=== PATIENT | male | born 1950 | race Caucasian/White ===

== ENCOUNTER → 2023-12-08 09:59 | Outpatient (REF) | payer MEDICARE, SELFPAY | LOC: RAD 09:59 | PROVIDERS: ATTENDING PHYSICIAN Family Medicine | DX: M46.1 Sacroiliitis, not elsewhere classified (principal) | CPT/HCPCS: 72110 ==

== ENCOUNTER → 2023-12-16 10:13 | Outpatient (REF) | payer MEDICARE, SELFPAY | LOC: RAD 10:13 | PROVIDERS: ATTENDING PHYSICIAN Family Medicine | DX: R68.89 Other general symptoms and signs (principal) | CPT/HCPCS: 93922; 93925 ==

== ENCOUNTER 2024-08-31 06:10 | Day surgery (SDC) | payer OTHER, SELFPAY ==
[2024-08-31 07:31] VITALS: BMI 44.9
[2024-08-31 07:32] VITALS: BMI 44.9
[2024-08-31 07:39] LABS: Glucose - Point of Care 193 mg/dl (70-99)
[2024-08-31 07:48] VITALS: BP 150/73
[2024-08-31 09:47] VITALS: BP 107/45
[2024-08-31 10:01] VITALS: BP 142/75
[2024-08-31 10:12] VITALS: BP 145/78
== END 2024-08-31 10:24 | disposition home or self-care (01) ==
LOC: SDS 06:10
PROVIDERS: ATTENDING PHYSICIAN Specialist; FAMILY PHYSICIAN Family Medicine
DX: Z12.11 Encounter for screening for malignant neoplasm of colon (principal); D12.3 Benign neoplasm of transverse colon; D12.4 Benign neoplasm of descending colon; D12.5 Benign neoplasm of sigmoid colon; Z86.0101 Personal history of adenomatous and serrated colon polyps
CPT/HCPCS: 45385; 88305; 82962

== ENCOUNTER 2024-10-18 14:05 | Inpatient (IN) | payer OTHER, SELFPAY ==
[2024-10-18] VITALS (14 sets, daily range): BP systolic 122–188; BP diastolic 60–87; BMI 43.5; BMI 42.4
[2024-10-18 06:55] LABS: Glucose - Point of Care 224 mg/dl (70-99)
--- NOTE | 2024-10-18 07:49 | ED.GENMED ---
History of Present Illness
General
Chief Complaint: Chest Pain
Source: patient
Exam Limitations: none
Time Seen by Provider: 10/18/24 06:59
Nursing documentation reviewed up to this point in time: agreed with
History of Present Illness
History of Present Illness:
74-year-old male past medical history of diabetes, CKD, hypertension hyperlipidemia presenting to the emergency department today with concerns of severe discomfort coming from his upper abdomen into his chest and also rating to his back had 2
episodes of vomiting and also seem to be very sweaty at home. Symptoms ongoing for roughly 10 hours prior to arrival to the ER. Denies similar symptoms in the past. Has had reflux in the past but this feels very different. Describes it as a
sharp aching pressure and sometimes more severe when it radiates to the back. Denies any changes in bowel movements.
Past History
Past History
ED Past Medical History: HTN, Hypercholesterolemia and IDDM
ED Past Surgical History: Orthopedic and Other (ENT)
Social History
Tobacco: Former smoker
Alcohol: Occasional
Drug: None
Personal:
Living: with family
Employment: Retired
Family History
Family History: Other (Noncontributory)
Review of Systems
Review of Systems
Allergies reviewed?: Yes
All Other Systems: ROS reviewed and negative except as documented in HPI and ROS
Phy Exam
Physical Exam
Physical Exam:
GENERAL: Alert , in no apparent distress
EYE: pupils equal and reactive
NECK: Supple, no significant adenopathy.
ENT: o/p clr, mmm.
CARDIAC: Regular rate and rhythm .
LUNGS: Clear breath sounds bilaterally, no acute respiratory distress, no wheezes/rales/rhonchi
ABDOMEN: Soft, without focal tenderness, no r/g, no cvat
NEUROLOGICAL: Alert and oriented, no focal neuro deficits
SKIN: Warm and dry, skin intact.
MUSCULOSKELETAL: No edema, well perfused.
PSYCH: Normal and appropriate interaction.
Scores
Heart Score for Chest Pain Patients
STEMI patient?: No
History: Slightly or Non-Suspicious
ECG: Normal
Age: >/= 65 years
Risk Factors: >/= 3 Risk Factors or History of CAD
Troponin: </= Normal Limit
Heart Score for Chest Pain Patients: 4
Heart Score Risk: 20.3% MACE over next 6 weeks
Course
Orders/Labs/Results
Orders:
Orders
10/18/24 06:46
EKG [Electrocardiogram (*1)] Urgent
Reason for Study: Chest Pain
10/18/24 06:47
EKG- Treatment ONCE
10/18/24 07:13
CT Chest/abd/pelvis Angio W/wo Urgent
Comment:
Reason For Exam: chest abd and back pain severe for 10 hours.
10/18/24 07:41
CMP [Comprehensive Metabolic Panel] Urgent
Complete Blood Count/With Diff Urgent
Lipase Urgent
Troponin I Urgent
10/18/24 09:45
US Abdomen Complete/Upper Urgent
Comment:
Reason For Exam: abnormal CT, LFT/bili up
10/18/24 12:41
Piperacillin/Tazo 4.5 Gram [Zosyn] 4.5 gram in 100 ml IV NOW
Abnormal Lab Results
10/18/24 10/18/24
06:53 07:41
RBC 4.45 L 10^6/uL
(4.70-6.10)
RDW 15.2 H %
(11.5-14.5)
MPV 10.8 H fL
(7.4-10.4)
Absolute Lymphs (auto) 0.8 L 10^3/uL
(1.2-3.4)
Absolute Monos (auto) 0.8 H 10^3/uL
(0.1-0.6)
Neutrophils % 77.7 H %
(42.2-75.2)
Lymphocytes % 9.8 L %
(20.5-51.1)
Monocytes % 9.7 H %
(1.7-9.3)
Chloride 109 H mmol/L
(98-107)
BUN 43 H mg/dl
(9-20)
Creatinine 1.8 H mg/dL
(0.7-1.3)
Glucose 230 H mg/dl
(70-99)
Total Bilirubin 1.4 H mg/dl
(0.2-1.3)
AST 854 H* U/L
(17-59)
ALT 497 H U/L
(0-50)
Alkaline Phosphatase 184 H U/L
(38-126)
Lipase 408 H U/L
(23-300)
POC Glucose 224 H mg/dl
(70-99)
10/18/24 07:41
10/18/24 07:41
Vital Signs
Initial and Last Documented VS:
Initial Vital Signs
Temp Pulse Resp BP Pulse Ox
97.7 F 85 24 156/79 98
10/18/24 06:47 10/18/24 06:47 10/18/24 06:47 10/18/24 06:47 10/18/24 06:47
Last Documented Vital Signs
Temp Pulse Resp BP Pulse Ox
97.7 F 97 18 188/65 100
10/18/24 06:47 10/18/24 10:00 10/18/24 10:15 10/18/24 10:00 10/18/24 10:00
MDM/Problems Addressed
MDM/Problems Addressed:
74-year-old male presenting to the emergency department today with concerns of discomfort initially that started in the abdomen was associated with vomiting now rating to the chest and back. On arrival here blood pressure slightly elevated
otherwise no emergent vital signs. Initial glucose level of 224. Concerning his description of symptoms from his abdomen to his chest to his back there was concern for aortic pathology. CT dissection study was ordered. No evidence of however was
concern of distention of the gallbladder. Labs showing significantly elevated LFTs elevated bili. Patient with normal labs in the past in this regard. Concerning this ultrasound was performed. This did not show emergent findings otherwise. He
does have ongoing discomfort mainly to the right side of the abdomen at this point plan to admit for further assessment and GI consultation.
*Critical Care Note
Total Time (30-74mins, 75-104mins- exclusive of procedures): Not Applicable
ED Attending Note
-
Portions of this chart may have been created with voice recognition software.� Occasional wrong word or��sound alike� substitutions may have occurred due to the inherent limitations of voice recognition software.
Discharge Plan
Departure
Patient Disposition: Admit
Date of Disposition: 10/18/24
Time of Disposition: 13:15
Admit to: Med/Surg
Admit to doctor: Sheu
Presentation/result/management discussed w/ accepting MD/DO: Hospitalist
Patient with high blood pressure during this ER visit?: No
Condition: Good
Covid-19: Not Applicable
Discharge Problem:
Abdominal pain, Transaminitis
Prescriptions:
No Action
simvastatin 20 MG tablet
20 mg PO DAILY
Patient Comments:
pt not sure dosage
insulin glargine [Lantus Solostar U-100 Insulin] 100 UNITS/ML insulin pen
45 units SC HS
furosemide 40 MG tablet
80 mg PO DAILY
lisinopril 20 MG tablet
20 mg PO DAILY
omeprazole [Prilosec] 10 MG capsule,delayed release(DR/EC)
10 mg PO DAILY
acetaminophen [Tylenol Extra Strength] 500 MG tablet
1,000 mg PO Q6HPRN PRN (Reason: hip, back, leg pain)
Patient Comments:
pt says he usually takes twice a day especially at bedtime
Centrum Silver Men 1 EACH tablet
1 ea PO DAILY
Sutab 1.479 GM tablet
1.479 gm PO DIRECTED
famotidine 40 mg Tablet
40 mg PO DAILY
allopurinol 300 mg Tablet
300 mg PO DAILY
Humalog U-100 Insulin 100 unit/mL Cartridge
10 unit SC AC
pioglitazone-metformin 15-850 mg Tablet
2 tab PO DAILY
Mounjaro 7.5 mg/0.5 mL Pen Injector
7.5 mg SC QWEEK
Referrals:
Harshad Covington MD [Family Provider] -
Interventions
Interventions:
*Risk Screen - Suicide Last Done: 10/18/24 06:47
*General Assessment Last Done: 10/18/24 07:10
*Neglect/Abuse Screening Last Done: 10/18/24 07:12
*ED- Fall Risk Assessment Last Done: 10/18/24 07:03
*ED COVID-19 Vaccine History Last Done: 10/18/24 07:03
ED- Cardiac Assessment Last Done: 10/18/24 07:03
Discharge Date and Time
Print Language: BULGARIAN
[2024-10-18 07:57] LABS: % Basophils 0.7 % (0-2); % Eosinophils 1.7 % (0-6); % Immature Granulocytes 0.4 % (0-0.5); % Lymphocytes 9.8 % (20.5-51.1); % Monocytes 9.7 % (1.7-9.3); % Neutrophils 77.7 % (42.2-75.2); Absolute Basophils 0.1 10^3/uL (0-0.2); Absolute Eosinophils 0.1 10^3/uL (0-0.7); Absolute Lymphocytes 0.8 10^3/uL (1.2-3.4); Absolute Monocytes 0.8 10^3/uL (0.1-0.6); Absolute Neutrophils 6.4 10^3/uL (1.4-6.5); Hematocrit 39.8 % (39.0-52.0); Hemoglobin 13.4 g/dL (13.0-18.0); Mean Corp Hgb Conc. 33.7 g/dL (33.0-37.0); Mean Corpuscular Hgb 30.1 pg (27.0-31.0); Mean Corpuscular Volume 89.4 fL (80.0-94.0); Mean Platelet Volume 10.8 fL (7.4-10.4); Nucleated Red Blood Cells % 0 % (-); Platelet Count 254 10^3/uL (130-400); Red Blood Cell Count 4.45 10^6/uL (4.70-6.10); Red Cell Dist. Width 15.2 % (11.5-14.5); White Blood Cell Count 8.3 10^3/uL (4.8-10.8)
[2024-10-18 08:15] LABS: ALT (SGPT) 497 U/L (0-50); Alkaline Phosphatase 184 U/L (38-126); Blood Urea Nitrogen 43 mg/dl (9-20); Calcium 9.5 mg/dl (8.4-10.2); Carbon Dioxide 25 mmol/L (22-30); Chloride 109 mmol/L (98-107); Estimated Creatinine Clearance 47 ml/min; Glucose 230 mg/dl (70-99); Lipase 408 U/L (23-300); Potassium 4.9 mmol/L (3.5-5.1); Sodium 142 mmol/L (135-145); Total Bilirubin 1.4 mg/dl (0.2-1.3); Total Protein 6.8 g/dl (6.3-8.2); eGFR 39.25
[2024-10-18 08:16] LABS: Troponin I < 0.012 ng/ml
[2024-10-18 08:59] LABS: AST (SGOT) 854 U/L (17-59)
[2024-10-18] MEDS: ZOSYN 100 IV (13:14)
--- NOTE | 2024-10-18 13:21 | CON.GI ---
Addendum entered and electronically signed by Annette Matthews DO 10/18/24 14:46:
The patient was seen and examined by me independently in collaboration with the nurse practitioner.
Past medical history/social history/medications/allergies/family history reviewed.
Lab data and imaging data reviewed.
Donnie Lennon is a 74 y.o. male with morbid obesity, DM on mounjaro, HLD, CKD, advanced colon adenoma w/ HGD, HTN admitted with acute onset RUQ found to have elevated LFTs and Lipase. Reports 30 lb weight loss on mounjaro, started approx 6 months
ago, due for next dose on Tuesday. Recently stopped metformin.
CT Angio: CT angio with no dissection, distended GB, progressed, acute cholecystitis not excluded, canal stenosis with L2-3 bulge, mediastinal lymphadenopathy, pancreas unremarkable., adrenal masses, hepatic cysts, fat containing umbilical hernia.
prostate hypertrophy. US with GB distention distended no cholelithiasis, no GB wall thickening or pericholecystitis edema, no duct dil, fatty liver, pancreas, IVC and abd aorta not visualized.
Abdominal US: Diffuse fatty infiltration of the liver. Cyst in the left lobe of the liver, GB is distended, measured by tech as thickened wall, however, does not appear significantly thickened per radiologist. No pericholecystic fluid, sludge or
stones. No biliary ductal dilatation. Pancreas not well-visualized.
BUN 43, creat 1.8, glucose 230, Bili 1.4, AST 854, ALT 497 , alk phos 184. lipase 408
Suspect acute cholecystitis vs. choledocholithiasis vs. gallstone pancreatitis
-minimal tenderness to palpation in RUQ, no rebound or guarding
-imaging shows distended GB and questionable GB wall thickness
-ultimately, additional imaging warranted to further assess, considering MRI/MRCP vs. HIDA
-will proceed with MRCP to evaluate for choledocholithiasis and better evaluate the pancreas, if negative, would recommend surgical consultation
-analgesia prn, okay for clear liquids, if tolerated
Original Note:
Consultation
-
Date/Time Consultation Requested: 10/18/24 1300
Date/Time Consultation Performed: 10/18/24 1320
Requesting Provider: Daniel Gillespie PA-C
Performing Provider: BEAN Garcia, Rayne Matthews DO
Reason for Consultation: abdominal pain
Medical History
Chief Complaint / HPI
History of Present Illness:
Pt is a 74yo presents with hx colon polyps including prior polyp with high grade dysplasia, NIDDM, HTN, Hypercholesterolemia, CKD presents with onset of upper abdominal pain into chest into back with vomiting. On admission noted with stable CBC, BUN
43, creat 1.8, glucose 230, Bili 1.4, AST 854, ALT , alk phos 184. lipase 408. In review with patient he admits starting Mounjaro about 6 months with slow increased of dose and 30 lbs wt loss, and about to mild twinge in over last month after
eating. He admit on 10/17 he ate steak at [employer] and began with epigastric pain with nausea and vomiting. Imaging on admission noted with CT angio with no dissection, distended GB, progressed, acute cholecystitis not excluded, canal
stenosis with L2-3 bulge, mediastinal lymphadenopathy, pancreas unremarkable., adrenal masses, hepatic cysts, fat containing umbilical hernia. prostate hypertrophy. US with GB distention distended no cholelithiasis, no GB wall thickening or
pericholecystitis edema, no duct dil, fatty liver, pancreas, IVC and abd aorta not visualized.
Pt admits to GERD with belching, and chronic constipation on stool softeners at home. He otherwise denies odynophagia, diarrhea, or rectal bleeding. Pt had recent follow up colonoscopy in aug with hx polyps.
Past Medical History
Past Medical History: HTN, Hypercholesterolemia, NIDDM, Renal Failure (CKD) and Other (CKD, colon polyp with high grade dysplasia )
Past Surgical History: Orthopedic and Other (ENT)
Social History
Tobacco: Former Smoker
Alcohol: Occasional
Drug: None
Living: With Family
Employment: Retired
Family History
Family History: Other (no family hx GI cancers )
Allergies / Home Medications
Allergy/AdvReac Type Severity Reaction Status Date / Time
No Known Allergies Allergy Verified 10/18/24 06:55
�Medication �Instructions �Recorded
insulin glargine 100 unit/mL (3 45 units SC HS Diabetes 05/13/09
mL) subcutaneous pen (Lantus
Solostar U-100 Insulin)
simvastatin 20 mg tablet 20 mg PO DAILY High cholesterol 05/13/09
furosemide 40 mg tablet 80 mg PO DAILY leg swelling 11/25/20
lisinopril 20 mg tablet 20 mg PO DAILY Blood pressure 11/25/20
omeprazole 10 mg capsule,delayed 10 mg PO DAILY Gastrointestinal 11/25/20
release (Prilosec) issue
acetaminophen 500 mg tablet 1,000 mg PO Q6HPRN PRN hip, back, 11/26/20
(Tylenol Extra Strength) leg pain
[id number]-[id number]-[id number] 300 mcg-K 60 1 ea PO DAILY Supplement 11/26/20
mcg-lycop 600 mcg-lutein 300 mcg
tablet (Centrum Silver Men)
sodium sul 1.479 gram-potas ch 1.479 gm PO DIRECTED 03/26/21
0.188 gram-magnes sul 0.225 gram
tablet (Sutab)
allopurinol 300 mg tablet 300 mg PO DAILY 08/31/24
famotidine 40 mg tablet 40 mg PO DAILY 08/31/24
insulin lispro 100 unit/mL 10 unit SC AC 08/31/24
subcutaneous cartridge (Humalog
U-100 Insulin)
pioglitazone 15 mg-metformin 850 2 tab PO DAILY 08/31/24
mg tablet
tirzepatide 7.5 mg/0.5 mL 7.5 mg SC QWEEK 08/31/24
subcutaneous pen injector
(Mounjaro)
Review of Systems
-
History Source: Patient
Constitutional: Reports Weight Loss ( 30 lbs )
EENT: Reports No Symptoms
Respiratory: Reports Trouble Breathing (occasional with obesity )
Cardiac: Reports No Symptoms
Abdomen/GI: Reports Abdominal Pain, Nausea, Vomiting and Constipated
: Reports No Symptoms
Musculoskeletal: Reports No Symptoms
Skin: Reports No Symptoms
Neurological: Reports No Symptoms
Endocrine: Reports No Symptoms
Hematologic/Lymphatic: Reports No Symptoms
Vital Signs
Temp Pulse Resp BP Pulse Ox
97.7 F 97 18 188/65 100
10/18/24 06:47 10/18/24 10:00 10/18/24 10:15 10/18/24 10:00 10/18/24 10:00
Physical Exam
Exam
General: Well Developed, Well Nourished and No Apparent Distress
HEENT: Normocephalic and Anicteric
Respiratory: Clear
Cardiac: Regular Rhythm
GI: Soft, Non Distended and Tender (epigastric RUQ )
Musculoskeletal: No Clubbing and No Cyanosis
Skin: Warm and Dry
Neuro: Awake, Alert and AO x 3
Psych: Calm
Results
WBC 8.3 10^3/uL (4.8-10.8) 10/18/24 07:41
Hgb 13.4 g/dL (13.0-18.0) 10/18/24 07:41
Hct 39.8 % (39.0-52.0) 10/18/24 07:41
MCV 89.4 fL (80.0-94.0) 10/18/24 07:41
Plt Count 254 10^3/uL (130-400) 10/18/24 07:41
Absolute Neuts (auto) 6.4 10^3/uL (1.4-6.5) 10/18/24 07:41
Sodium 142 mmol/L (135-145) 10/18/24 07:41
Potassium 4.9 mmol/L (3.5-5.1) 10/18/24 07:41
Chloride 109 mmol/L (98-107) H 10/18/24 07:41
Carbon Dioxide 25 mmol/L (22-30) 10/18/24 07:41
BUN 43 mg/dl (9-20) H 10/18/24 07:41
Creatinine 1.8 mg/dL (0.7-1.3) H 10/18/24 07:41
Calcium 9.5 mg/dl (8.4-10.2) 10/18/24 07:41
Total Bilirubin 1.4 mg/dl (0.2-1.3) H 10/18/24 07:41
AST 854 U/L (17-59) H* 10/18/24 07:41
ALT 497 U/L (0-50) H 10/18/24 07:41
Alkaline Phosphatase 184 U/L (38-126) H 10/18/24 07:41
Lipase 408 U/L (23-300) H 10/18/24 07:41
Diagnostic Image Results:
10/18/24 CT Chest/abd/pelvis Angio W/wo
IMPRESSION: No definitive acute pathology of the chest abdomen or pelvis identified. No evidence of aortic dissection.
Distended gallbladder. Progressed. Abdominal ultrasound recommended. Acute cholecystitis cannot be excluded.
Moderate canal stenosis at L2/L3 due to a diffuse disc bulge and facet hypertrophy. Significantly progressed. However, this would better be evaluated by MR examination.
Mild mediastinal lymphadenopathy. Nonspecific.
Bilateral adrenal masses stable from 2020 suggesting benign adrenal adenomas.
Hypodense hepatic lesions suggestive of cysts. Stable
Fat-containing umbilical hernia. Stable. No evidence of incarceration or strangulation.
Mild prostate hypertrophy. Stable
10/18/24 US Abdomen Complete/Upper
Gallbladder appears distended. No evidence for cholelithiasis. No convincing evidence for gallbladder wall thickening or pericholecystic edema. Negative sonographic Azar's sign. No evidence of biliary ductal dilation.
Diffuse fatty infiltration the liver. Cyst in the left lobe of the liver.
The pancreas, upper abdominal IVC, and upper abdominal aorta are unable to be adequately visualized.
Prior GI Procedures:
EGD: none
Colonoscopy: 08/2024 [facility]
- Three 4 mm polyps in the sigmoid colon, in the
descending colon and in the transverse colon, removed
with a cold snare. Resected and retrieved.
- A tattoo was seen in the transverse colon. The
tattoo site appeared normal.
Assessment / Plan
-
Pt is a 74yo presents with hx colon polyps including prior polyp with high grade dysplasia, NIDDM, HTN, Hypercholesterolemia, CKD presents with onset of upper abdominal pain into chest into back with vomiting. On admission noted with stable CBC, BUN
43, creat 1.8, glucose 230, Bili 1.4, AST 854, ALT , alk phos 184. lipase 408. In review with patient he admits starting Mounjaro about 6 months with slow increased of dose and 30 lbs wt loss, and about to mild twinge in over last month after
eating. He admit on 10/17 he ate steak at [employer] and began with epigastric pain with nausea and vomiting. Imaging on admission noted with CT angio with no dissection, distended GB, progressed, acute cholecystitis not excluded, canal
stenosis with L2-3 bulge, mediastinal lymphadenopathy, pancreas unremarkable, adrenal masses, hepatic cysts, fat containing umbilical hernia. prostate hypertrophy. US with GB distention distended no cholelithiasis, no GB wall thickening or
pericholecystitis edema, no duct dil, fatty liver. pancreas, IVC and abd aorta not visualized.
-epigastric abdominal pain with nausea/vomiting
-elevated LFT's and lipase
-distended GB on imaging with no duct dilatation/no stones
-constipation
-L2-3 disc bulge
other med problems:
-hepatic cysts/fatty liver per imaging
-fatty umbilical hernia
-hx colon polyp with prior high grade dysplasia
-NIDDM- Mounjaro
-HTN
-Hypercholesterolemia
-CKD
PLAN:
Etiology of symptoms concern for cholecystitis, CBD stone but no duct dil on US, vs other-- in setting of recent mounjaro with 30 lbs wt loss
US and CTA as noted
will obtain MRI/MRCP
trend labs
will need to consider surgical eval
will eventually need bowel regiment with constipation
last dose Mounjaro 10/13
-
-
Thank you for consultation and allowing me to participate in the patient's care. Please call the non emergency services ambulance driver GI physician during the after hours with any questions or concerns.
[2024-10-18] MEDS: NSS 1000 IV ×2 (13:31→19:52)
--- NOTE | 2024-10-18 13:36 | HPS.HSE ---
Family Physician
-
Family Physician: Harshad Covington
Chief Complaint
-
Right upper quadrant pain
History of Present Illness
Patient is a pleasant 74 years old with history of insulin-dependent diabetes mellitus, chronic kidney disease, hypertension, hyperlipidemia who came to the ER with right upper quadrant pain which started last night after dinner associated with 2
episodes of vomiting.
Patient drove himself to the ER from [place] at 6 AM, denies chest pain or shortness of breath.
In the ER CT abdomen pelvis done which showed no definitive acute pathology but concern of distended gallbladder.
Ultrasound abdomen done which shows Gallbladder appears distended. No evidence for cholelithiasis. No convincing evidence for gallbladder wall thickening or pericholecystic edema. Negative sonographic Azar's sign. No evidence of biliary ductal
dilation.
Patient also noted to have elevated liver enzymes and elevated creatinine, lipase level 408.
Patient will be admitted under hospitalist service.
Medical History
Past Medical History
Past Medical History: Reports HTN, Hypercholesterolemia and IDDM
Past Surgical History: Reports Orthopedic and Other (ENT)
Social History
Tobacco: Former Smoker
Alcohol: Occasional
Drug: None
Personal:
Living: With Family
Employment: Retired
Family History
Family History: Not pertinent
Allergies / Home Medications
Allergies reflects when Allergies were last updated in [facility].
Home Medications with original date entered in [facility]
Allergy/Medication List:
Allergies
Allergy/AdvReac Type Severity Reaction Status Date / Time
No Known Allergies Allergy Verified 10/18/24 06:55
Home Medications
insulin glargine 100 unit/mL (3 mL) subcutaneous pen (Lantus Solostar U-100 Insulin) 45 units SC HS Diabetes 05/13/09
simvastatin 20 mg tablet 20 mg PO DAILY High cholesterol 05/13/09
furosemide 40 mg tablet 80 mg PO DAILY leg swelling 11/25/20
lisinopril 20 mg tablet 20 mg PO DAILY Blood pressure 11/25/20
allopurinol 300 mg tablet 300 mg PO DAILY 08/31/24
famotidine 40 mg tablet 40 mg PO HS 08/31/24
insulin lispro 100 unit/mL subcutaneous cartridge (Humalog U-100 Insulin) 1 sliding scale dose SC AC 08/31/24
tirzepatide 7.5 mg/0.5 mL subcutaneous pen injector (Mounjaro) 7.5 mg SC SA 08/31/24
omeprazole 10 mg capsule,delayed release 10 mg PO DAILY 10/18/24
Review of Systems
-
A 12 point ROS was completed and negative except as noted: Yes
Constitutional: Reports Fatigue; Denies Fever, Weight Gain, Weight Loss or Sleep Disturbance
EENT: Denies Tearing, Sore Throat, Mouth Pain, Mouth Swelling or Runny Nose
Respiratory: Denies Cough, Hemoptysis or Trouble Breathing
Cardiac: Denies Chest Pain, Diaphoresis, Palpitations or Syncope
Abdomen/GI: Reports Abdominal Pain, Nausea and Vomiting; Denies Diarrhea, Constipated, Bloody Stools or Black Stools
: Denies Dysuria, Frequency, Flank Pain, Incontinence, Difficulty Voiding, Urgency, Bleeding or Dark Urine
Musculoskeletal: Denies Joint Pain, Joint Swelling, Muscle Pain, Muscle Stiffness or Edema
Skin: Denies Itching or Rash
Neurological: Denies Dizzy, Headache, Weakness or Numbness
Endocrine: Denies Polyuria, Polydipsia or Temp Intolerance
Hematologic/Lymphatic: Denies Bleeding, Swollen Glands or Bruising
Psych: Reports Calm; Denies Depression, Anxiety or Panic Disorder
Physical Exam
Vital Signs
Vital Signs
Temp Pulse Resp BP Pulse Ox
97.7 F 97 18 188/65 100
10/18/24 06:47 10/18/24 10:00 10/18/24 10:15 10/18/24 10:00 10/18/24 10:00
Physical Exam
General: Well Developed, Well Nourished, No Apparent Distress, Comfortable and Good Appetite; No Pain, Chills or Sweats
HEENT: NormoCephalic, Moist mucous membranes, Atraumatic, Good Dentition, PERRLA, Nose Appears Normal and Ears Appear Normal
Respiratory: Clear
Cardiac: S1/S2 and Regular Rhythm
Breast: Deferred by me
GI: Normal Bowel Sounds and Tender (Right upper quadrant)
Genito-urinary: Deferred by me
Musculoskeletal: No Clubbing, No Cyanosis and No Edema
Skin: Warm; No Rash, Jaundice, Ulcers, Lesions or Decubitus Ulcers
Neuro: Awake, Alert, Oriented, AO x 3, No Motor Deficits, Nonfocal/grossly intact and Cranial Nerves Intact
Hematologic/Lymphatic: No Lymphadenopathy
Psych: Calm
Laboratory Results
-
10/18/24 07:41
10/18/24 07:41
Laboratory Results
Total Bilirubin 1.4 mg/dl (0.2-1.3) H 10/18/24 07:41
AST 854 U/L (17-59) H* 10/18/24 07:41
ALT 497 U/L (0-50) H 10/18/24 07:41
Alkaline Phosphatase 184 U/L (38-126) H 10/18/24 07:41
Troponin I < 0.012 ng/ml 10/18/24 07:41
Lipase 408 U/L (23-300) H 10/18/24 07:41
Data Reviewed
-
Diagnostic Radiology: Report Reviewed by me
CT Scan: Report Reviewed by me
Medical Tests (Nuc Med, Echo, EKG etc): Report Reviewed by me
Lab Data: Labs Reviewed by me
Old Records: Reviewed
Impression/Plan
-
IMPRESSION:
Patient is a pleasant 74 years old with history of insulin diabetes mellitus, CKD, hypertension, hyperlipidemia who came to the ER with right upper quadrant pain found to have elevated LFTs and concern of passing gallbladder stone, admitted under
hospitalist service with consult to gastroenterology.
Assessment/plan:
Transaminitis with possible passing gallbladder stone.
Patient presented to the ER with right upper quadrant pain found to have severely elevated LFTs
Total Bilirubin 1.4 , AST 854 , ALT 497, Alkaline Phosphatase 184
Normal LFTs on March 2023.
CT abdomen/pelvis done shows distended gallbladder but otherwise no acute pathology
Ultrasound abdomen done which shows Gallbladder appears distended. No evidence for cholelithiasis. No convincing evidence for gallbladder wall thickening or pericholecystic edema. Negative sonographic Azar's sign. No evidence of biliary ductal
dilation.
Keep patient NPO.
GI consult.
IV fluid.
Pain and nausea control.
Started on Zosyn in the ER we will continue.
Consider MRCP if symptoms persist.
Hold statin
Acute gallstone pancreatitis
Lipase 408
Keep NPO.
IV fluids
Acute renal failure on CKD stage IIIb
Creatinine 1.8.
Baseline creatinine 1.6.
Avoid nephrotoxins.
IV fluid hydration
Adjusted and renally dose medications
History of diabetes mellitus
Continue home medication (lower Lantus to 20 units at night)
Insulin sliding scale
Diabetic diet
Hemoglobin A1c 10.2 on 2020, will repeat
History of hypertension
Hold lisinopril for now
History of hyperlipidemia
Hold statin for now
History of gout
reduce allopurinol dose to 100 mg
History of GERD
Continue PPI
CODE STATUS: Full code
DVT prophylaxis: Heparin
Diet: N.p.o.
Total time spent on today's encounter was 75 minutes which included time spent in counseling the patient/family regarding diagnosis and treatment plan as listed above, goals of care, and symptom management. Case was discussed with nursing staff,
specialists, and care coordinators/case management. All labs and imaging personally reviewed by me. Remainder the time spent in detailed review of previous records, lab data, imaging, and other medical provider documentation.
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
[2024-10-18 18:20] LABS: Glucose - Point of Care 191 mg/dl (70-99)
[2024-10-18] MEDS: HEPARIN SC (20:02)
[2024-10-18] MEDS: ZOSYN 50 IV (20:12)
[2024-10-18] MEDS: ULTRAM 50 MG PO (20:12)
[2024-10-18 23:20] LABS: Glucose - Point of Care 199 mg/dl (70-99)
[2024-10-18] MEDS: PEPCID 20 MG PO (23:25)
[2024-10-18] MEDS: HEPARIN 5000 UNITS SC (23:25)
[2024-10-18] MEDS: LANTUS 0.2 UNITS SC (23:25)
[2024-10-18] MEDS: NOVOLOG FLEXPEN-LOW RESISTANCE SC (23:46)
[2024-10-19] MEDS: ZOSYN 50 IV ×4 (02:01→21:06)
[2024-10-19 03:15] VITALS: BP 124/56
[2024-10-19 05:48] LABS: Glucose - Point of Care 204 mg/dl (70-99)
[2024-10-19] MEDS: NOVOLOG FLEXPEN-LOW RESISTANCE 2 UNITS SC ×2 (05:49→12:41)
[2024-10-19] MEDS: MORPHINE SULFATE 2 MG IV ×2 (05:55→22:16)
[2024-10-19 06:33] LABS: Hematocrit 34.3 % (39.0-52.0); Hemoglobin 11.8 g/dL (13.0-18.0); Mean Corp Hgb Conc. 34.4 g/dL (33.0-37.0); Mean Corpuscular Hgb 30.6 pg (27.0-31.0); Mean Corpuscular Volume 88.9 fL (80.0-94.0); Mean Platelet Volume 10.6 fL (7.4-10.4); Platelet Count 212 10^3/uL (130-400); Red Blood Cell Count 3.86 10^6/uL (4.70-6.10); Red Cell Dist. Width 15.6 % (11.5-14.5); White Blood Cell Count 4.7 10^3/uL (4.8-10.8)
[2024-10-19 07:00] LABS: Albumin 3.4 g/dl (3.5-5.0); Alkaline Phosphatase 291 U/L (38-126); Blood Urea Nitrogen 31 mg/dl (9-20); Calcium 9.1 mg/dl (8.4-10.2); Carbon Dioxide 22 mmol/L (22-30); Chloride 111 mmol/L (98-107); Estimated Creatinine Clearance 46 ml/min; Glucose 240 mg/dl (70-99); Potassium 4.6 mmol/L (3.5-5.1); Sodium 141 mmol/L (135-145); Total Protein 5.9 g/dl (6.3-8.2); eGFR 39.25
[2024-10-19 07:09] LABS: ALT (SGPT) 1267 U/L (0-50); AST (SGOT) 840 U/L (17-59)
[2024-10-19 07:46] LABS: Hepatitis C Antibody Negative (Negative)
[2024-10-19 07:49] VITALS: BP 142/75
[2024-10-19] MEDS: HEPARIN 5000 UNITS SC ×2 (08:51→15:05)
[2024-10-19] MEDS: PROTONIX 20 MG PO (08:52)
[2024-10-19] MEDS: ZYLOPRIM 100 MG PO (08:52)
--- NOTE | 2024-10-19 09:43 | W.PN.UPDATE ---
Update Note
Progress Note Update
reviewed with Dr. Ivy will add surgical eval
--- NOTE | 2024-10-19 09:58 | W.PN.GI.CBS2 ---
Today's Communication / Plan
-
LFTs rising. MRI/MRCP pending, will determine next steps in management based on findings. Surgical evaluation pending
Assessment / Plan
-
Donnie Lennon is a 74 y.o. male with morbid obesity, DM on mounjaro, HLD, CKD, advanced colon adenoma w/ HGD, HTN admitted with acute onset RUQ found to have elevated LFTs and Lipase. Reports 30 lb weight loss on mounjaro, started approx 6 months
ago, due for next dose on tomorrow
CT Angio: CT angio with no dissection, distended GB, progressed, acute cholecystitis not excluded, canal stenosis with L2-3 bulge, mediastinal lymphadenopathy, pancreas unremarkable., adrenal masses, hepatic cysts, fat containing umbilical hernia.
prostate hypertrophy. US with GB distention distended no cholelithiasis, no GB wall thickening or pericholecystitis edema, no duct dil, fatty liver, pancreas, IVC and abd aorta not visualized.
Abdominal US: Diffuse fatty infiltration of the liver. Cyst in the left lobe of the liver, GB is distended, measured by tech as thickened wall, however, does not appear significantly thickened per radiologist. No pericholecystic fluid, sludge or
stones. No biliary ductal dilatation. Pancreas not well-visualized.
BUN 43 --> 31
creat 1.8--> 1.8
Bili 1.4--> 4
AST 854-->840
ALT 497--> 1267
alk phos 184--> 291
lipase 408
Suspect acute cholecystitis vs. choledocholithiasis vs. gallstone pancreatitis
-minimal tenderness to palpation in RUQ, no rebound or guarding
-imaging shows distended GB and questionable GB wall thickness
-worsening LFTs overnight, now more concerning for choledocho
-keep NPO, MRI/MRCP pending, will determine next steps based on imaging findings
-continue with IVF, antiemetics, analgesia prn
-Surgical evaluation pending
Subjective
Subjective
Date of Service: October 19, 2024
Patient seen in follow-up, still experiencing RUQ pain but managable with pain meds, actually starting to feel hungry. Worsening LFTs on AM labs. MRI/MRCP pending.
Objective
Data Reviewed
Laboratory Data:
Laboratory Results
10/19/24 06:21
10/19/24 06:21
Laboratory Results
Total Bilirubin 4.0 mg/dl (0.2-1.3) H D 10/19/24 06:21
AST 840 U/L (17-59) H* 10/19/24 06:21
ALT 1267 U/L (0-50) H* 10/19/24 06:21
Alkaline Phosphatase 291 U/L (38-126) H 10/19/24 06:21
Lipase 408 U/L (23-300) H 10/18/24 07:41
Vital Signs and I&O:
Vital Signs
Temp Pulse Resp BP Pulse Ox
97.5 F 87 18 142/75 98
10/19/24 07:49 10/19/24 07:49 10/19/24 07:49 10/19/24 07:49 10/19/24 07:49
Physical Exam
Physical Exam
GENERAL: In no acute distress, appears comfortable
ABDOMEN: central obesity;+BS; soft, mild TTP in RUQ, no rebound or guarding
--- NOTE | 2024-10-19 10:45 | W.PN.HOSP.TC ---
Today's Communication/Plan
-
MRCP/surgery Consult
Assessment / Plan
Assessment / Plan
IMPRESSION:
Patient is a pleasant 74 years old with history of insulin diabetes mellitus, CKD, hypertension, hyperlipidemia who came to the ER with right upper quadrant pain found to have elevated LFTs and concern of passing gallbladder stone, admitted under
hospitalist service with consult to gastroenterology.
LFTs still elevated, MRCP ordered, surgery consulted.
Assessment/plan:
Transaminitis with possible passing gallbladder stone.
Patient presented to the ER with right upper quadrant pain found to have severely elevated LFTs
Total Bilirubin 1.4 , AST 854 , ALT 497, Alkaline Phosphatase 184
Normal LFTs on March [address]23.
CT abdomen/pelvis done shows distended gallbladder but otherwise no acute pathology
Ultrasound abdomen done which shows Gallbladder appears distended. No evidence for cholelithiasis. No convincing evidence for gallbladder wall thickening or pericholecystic edema. Negative sonographic Azar's sign. No evidence of biliary ductal
dilation.
Keep patient NPO.
GI consult.
IV fluid.
Pain and nausea control.
Started on Zosyn in the ER we will continue.
Consider MRCP if symptoms persist.
Hold statin
4/4
Worsening LFTs
Total Bilirubin
(0.2-1.3�mg/dl) 1.4�H
4.0�H�?��
AST
(17-59�U/L) 854�H*��
840�H*��
ALT
(0-50�U/L) 497�H
1267�H*��
Alkaline Phosphatase
(38-126�U/L) 184�H
291�H
MRCP pending.
Surgery consulted
Acute gallstone pancreatitis
Lipase 408
Keep NPO.
IV fluids
Acute renal failure on CKD stage IIIb
Creatinine 1.8.
Baseline creatinine 1.6.
Avoid nephrotoxins.
IV fluid hydration
Adjusted and renally dose medications
10/19
Creatinine 1.8
History of diabetes mellitus
Continue home medication (lower Lantus to 20 units at night)
Insulin sliding scale
Diabetic diet
Hemoglobin A1c 10.2 on 2020, Repeat 8.0
History of hypertension
Hold lisinopril for now
History of hyperlipidemia
Hold statin for now
History of gout
reduce allopurinol dose to 100 mg
History of GERD
Continue PPI
CODE STATUS: Full code
DVT prophylaxis: Heparin
Diet: N.p.o.
Total time spent on today's encounter was 65 minutes which included time spent in counseling the patient/family regarding diagnosis and treatment plan as listed above, goals of care, and symptom management. Case was discussed with nursing staff,
specialists, and care coordinators/case management. All labs and imaging personally reviewed by me. Remainder the time spent in detailed review of previous records, lab data, imaging, and other medical provider documentation.
Anticipated Discharge: > 48 hours
Subjective/Interval History
-
Date of Service: October 19, 2024
Patient seen and examined at bedside, daughter at bedside, patient denies any chest pain or shortness of breath, improved abdominal pain, no nausea, no vomiting.
GI recommending surgery consult.
Objective Data
-
Labs:
Laboratory Results
10/19/24
06:21
WBC 4.7 L
Hgb 11.8 L
Hct 34.3 L
Plt Count 212
Sodium 141
Potassium 4.6
Chloride 111 H
Carbon Dioxide 22
BUN 31 H
Creatinine 1.8 H
Glucose 240 H
Calcium 9.1
Total Bilirubin 4.0 H D
AST 840 H*
ALT 1267 H*
Alkaline Phosphatase 291 H
Vital Signs:
Vital Signs
Temp Pulse Resp BP Pulse Ox
97.5 F 87 18 142/75 98
10/19/24 07:49 10/19/24 07:49 10/19/24 07:49 10/19/24 07:49 10/19/24 07:49
Physical Exam
-
General: Well Developed, Well Nourished, No Apparent Distress and Comfortable
HEENT: Normocephalic, Atraumatic, Moist Mucous Membranes, No Ptosis, PERRLA and Nose Appears Normal
Respiratory: Rales and Non Labored Respirations
Cardiac: Regular Rhythm and S1/S2
Breast: Deferred by me
GI: Soft, Nondistended, Normal Bowel Sounds and Tender (Slight right upper quadrant tenderness )
Genito-urinary: No Costovertebral Tender
Musculoskeletal: No Clubbing, No Cyanosis and No Edema
Skin: Warm
Neuro: Awake, Alert, Oriented, AO x 3 and No Motor Deficits
Psych: Calm
Data Reviewed
-
Diagnostic Radiology: Image personally visualized and interpreted and Report Reviewed by me
CT Scan: Image personally visualized and interpreted and Report Reviewed by me
Ultrasound: Image personally visualized and interpreted and Report Reviewed by me
MRI: Image personally visualized and interpreted and Report Reviewed by me
Medical Tests (Nuc Med, Echo etc): Image personally visualized and interpreted and Report Reviewed by me
Labs: Labs Reviewed by me
Old Records: Reviewed
[2024-10-19 11:10] VITALS: BP 138/65
[2024-10-19] MEDS: NSS 1000 IV (11:53)
[2024-10-19 12:38] LABS: Glucose - Point of Care 218 mg/dl (70-99)
--- NOTE | 2024-10-19 13:00 | CON.GS ---
Addendum entered and electronically signed by Russell Brooks MD 10/19/24 22:45:
I saw and examined the patient.
The Boat Outfitter's note was reviewed and I agree with the note.
Comment: Pt on teodorounjillian 3 months, past 2 months having intermittent RUQ pain and reflux discomfort. pain increased after heavy meal prompting ED presentation. Pain is improved now, but not resolved. Denies nausea. US and MRCP without evidence of
stones but there is some PCF noted on MR ad possible mild wall thickening. He may have passed a stone or these symptoms may be attributable to the GLP1 agonist. Would trend labs and monitor for now. If he does not improve he may benefit from CCY.
Original Note:
Consultation
-
Date/Time Consultation Performed: 10/19/24 9115
Performing Provider: Alana Brooks
Medical History
-
Chief Complaint: RUQ/Epigastric pain
History of Present Illness:
Mr Lennon is a 74 yo male with a h/o DM (A1c 8.0), HTN, HLD, Obesity, recent 40lb weight loss with Mounjaro, and CKD who presents with RUQ pain for the past 2 days. He notes that about 2 months ago, he has been having more indigestion and
occasional epigastric/RUQ discomfort after meals which has been short in duration. On 10/17, he went out for dinner at a steakhouse and had a rather large meal followed by ice cream at home. Later that night, he awoke from sleep with severe RUQ and
epigastric pain with nausea and vomiting. Currently, he has mild residual discomfort in these areas but is comfortable. He denies active nausea and notes he is quite hungry as he has not anything to eat since for over 24hours. He denies fevers or
chills.
Past Medical History
Past Medical History: GERD, HTN, Hypercholesterolemia, NIDDM, Renal Failure (cjd) and Other (obesity, gout)
Past Surgical History: Orthopedic (finger) and Other (skin graft to wrist)
Social History
Tobacco: Former Smoker
Alcohol: Occasional
Drug: None
Living: With Family
Family History
Family History: Reviewed & Not Pertinent
Allergies / Home Medications
Allergy/AdvReac Type Severity Reaction Status Date / Time
No Known Allergies Allergy Verified 10/18/24 06:55
�Medication �Instructions �Recorded �Confirmed �Type
insulin glargine 100 unit/mL (3 45 units SC HS Diabetes 05/13/09 10/18/24 History
mL) subcutaneous pen (Lantus
Solostar U-100 Insulin)
simvastatin 20 mg tablet 20 mg PO DAILY High cholesterol 05/13/09 10/18/24 History
furosemide 40 mg tablet 80 mg PO DAILY leg swelling 11/25/20 10/18/24 History
lisinopril 20 mg tablet 20 mg PO DAILY Blood pressure 11/25/20 10/18/24 History
allopurinol 300 mg tablet 300 mg PO DAILY Gout 08/31/24 10/18/24 History
famotidine 40 mg tablet 40 mg PO HS Gastrointestinal Issue 08/31/24 10/18/24 History
insulin lispro 100 unit/mL 1 sliding scale dose SC AC Diabetes 08/31/24 10/18/24 History
subcutaneous cartridge (Humalog
U-100 Insulin)
tirzepatide 7.5 mg/0.5 mL 7.5 mg SC SA Diabetes 08/31/24 10/18/24 History
subcutaneous pen injector
(Teodorouncelero)
omeprazole 10 mg capsule,delayed 10 mg PO DAILY GERD 10/18/24 10/18/24 History
release
Review of Systems
-
History Source: Patient and Family
All other systems: Negative unless noted
A 10 point review of systems was completed, and was negative except as per HPI.
Physical Exam
Vital Signs
Temp Pulse Resp BP Pulse Ox
97.5 F 83 20 138/65 97
10/19/24 11:10 10/19/24 11:10 10/19/24 11:10 10/19/24 11:10 10/19/24 11:10
10/18/24 10/19/24 10/20/24
06:59 06:59 06:59
Actual Weight 122.668 kg
Body Mass Index (BMI) 42.4
Lab Results
10/19/24 06:21
10/19/24 06:21
WBC 4.7 10^3/uL (4.8-10.8) L 10/19/24 06:21
Hgb 11.8 g/dL (13.0-18.0) L 10/19/24 06:21
Hct 34.3 % (39.0-52.0) L 10/19/24 06:21
Plt Count 212 10^3/uL (130-400) 10/19/24 06:21
Abs Immat Gran (auto) 0.0 10^3/uL (0-0.05) 10/18/24 07:41
Neutrophils % 77.7 % (42.2-75.2) H 10/18/24 07:41
Physical Exam
General: Well Developed and Well Nourished
HEENT: Moist Mucous Membranes
Respiratory: Non Labored Respirations
GI: Soft, Non Distended and Tender (mild RUQ)
Skin: Warm and Dry
Neuro: Awake, Alert and AO x 3
Psych: Calm
Data Reviewed
-
CT Scan: Image Personally Visualized and interpreted, Report Reviewed by me, Discussed with Patient and Discussed with Family
Ultrasound: Report Reviewed by me and Discussed with Family
Labs: Labs Reviewed by me, Discussed with Physician, Discussed with Patient and Discussed with Family
Old Records: Reviewed
Assessment / Plan
-
74 yo diabetic male presenting with ongoing RUQ pain/dyspepsia after a large meal the evening of 10/17/24. Intermittent symptoms for 2 months prior to this which were mild and short lived. RUQ mildly tender on exam. LFT's elevated and trending upwards
since presentation with bilirubin of 4.0 today. Lipase mildly elevated on presentation. No leukocytosis.
US this admission and previously in 2022 without cholelithiasis. No stones visualized on CT imaging as well although on both studies the gallbladder is somewhat distended. No wall thickening or pericholecystic stranding suggestive of cholecystitis
present. Although no stones visualized, symptoms are very suggestive of biliary colic. ?passed stone vs choledocholithiasis given rising LFT's.
--NPO for testing
--MRCP pending to better evaluate
--Discussed possible laparoscopic cholecystectomy pending GI work up, timing TBD pending MRI findings.
[2024-10-19 15:00] VITALS: BP 145/80
[2024-10-19 18:25] LABS: Glucose - Point of Care 181 mg/dl (70-99)
[2024-10-19] MEDS: NOVOLOG FLEXPEN-LOW RESISTANCE 1 UNITS SC (18:27)
[2024-10-19 19:30] VITALS: BP 155/80
[2024-10-19] MEDS: PEPCID 20 MG PO (21:07)
[2024-10-19 21:52] LABS: Glucose - Point of Care 320 mg/dl (70-99)
[2024-10-19] MEDS: LANTUS 0.2 UNITS SC (22:17)
[2024-10-19 22:40] VITALS: BP 132/66
[2024-10-20] MEDS: HEPARIN 5000 UNITS SC ×4 (00:12→23:11)
[2024-10-20 00:13] LABS: Glucose - Point of Care 242 mg/dl (70-99)
[2024-10-20] MEDS: NOVOLOG FLEXPEN-LOW RESISTANCE 2 UNITS SC ×2 (00:15→18:26)
[2024-10-20] MEDS: ZOSYN 50 IV ×4 (02:51→20:26)
[2024-10-20 03:35] VITALS: BP 137/70
[2024-10-20 06:14] LABS: Glucose - Point of Care 191 mg/dl (70-99)
[2024-10-20] MEDS: NOVOLOG FLEXPEN-LOW RESISTANCE 1 UNITS SC ×2 (06:16→12:17)
[2024-10-20 08:00] VITALS: BP 118/60
[2024-10-20 08:00] LABS: Hematocrit 33.7 % (39.0-52.0); Hemoglobin 11.3 g/dL (13.0-18.0); Mean Corp Hgb Conc. 33.5 g/dL (33.0-37.0); Mean Corpuscular Volume 89.4 fL (80.0-94.0); Platelet Count 214 10^3/uL (130-400); Red Blood Cell Count 3.77 10^6/uL (4.70-6.10); Red Cell Dist. Width 15.5 % (11.5-14.5); White Blood Cell Count 5.6 10^3/uL (4.8-10.8)
[2024-10-20 08:21] LABS: ALT (SGPT) 808 U/L (0-50); AST (SGOT) 277 U/L (17-59); Albumin 2.8 g/dl (3.5-5.0); Alkaline Phosphatase 322 U/L (38-126); Blood Urea Nitrogen 20 mg/dl (9-20); Calcium 8.8 mg/dl (8.4-10.2); Carbon Dioxide 24 mmol/L (22-30); Chloride 110 mmol/L (98-107); Estimated Creatinine Clearance 46 ml/min; Glucose 212 mg/dl (70-99); Potassium 4.7 mmol/L (3.5-5.1); Sodium 139 mmol/L (135-145); Total Bilirubin 4.1 mg/dl (0.2-1.3); Total Protein 5.2 g/dl (6.3-8.2); eGFR 39.25
[2024-10-20 08:28] LABS: Glucose - Point of Care 195 mg/dl (70-99)
[2024-10-20] MEDS: ZYLOPRIM 100 MG PO (08:49)
[2024-10-20] MEDS: PROTONIX 20 MG PO (08:49)
--- NOTE | 2024-10-20 09:17 | W.PN.GI.CBS2 ---
Today's Communication / Plan
-
GI will sign off; recommend outpatient follow-up with GI for fatty liver and pancreatic cysts
Assessment / Plan
-
Donnie Lennon is a 74 y.o. male with morbid obesity, DM on mounjaro, HLD, CKD, advanced colon adenoma w/ HGD, HTN admitted with acute onset RUQ found to have elevated LFTs and Lipase. Reports 30 lb weight loss on mounjaro, started approx 6 months
ago, due for next dose on tomorrow
CT Angio: CT angio with no dissection, distended GB, progressed, acute cholecystitis not excluded, canal stenosis with L2-3 bulge, mediastinal lymphadenopathy, pancreas unremarkable., adrenal masses, hepatic cysts, fat containing umbilical hernia.
prostate hypertrophy. US with GB distention distended no cholelithiasis, no GB wall thickening or pericholecystitis edema, no duct dil, fatty liver, pancreas, IVC and abd aorta not visualized.
Abdominal US: Diffuse fatty infiltration of the liver. Cyst in the left lobe of the liver, GB is distended, measured by tech as thickened wall, however, does not appear significantly thickened per radiologist. No pericholecystic fluid, sludge or
stones. No biliary ductal dilatation. Pancreas not well-visualized.
BUN 43 --> 31--> 20
creat 1.8--> 1.8--> 2.8
Bili 1.4--> 4-->4.1
AST 854-->840--> 277
ALT 497--> 1267--> 808
alk phos 184--> 291--> 322
lipase 408
Acalculous cholecystitis
-MRI/MRCP without ductal dilation or presence of cholelithiasis but GB wall edema and distension; suspect he passed a stone given the worsening LFTs yesterday which have since improved
-defer cholecystectomy evaluation/timing to surgery
-no need for endoscopic intervention
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
Subjective
Subjective
Date of Service: October 20, 2024
Patient seen in follow-up. Still complains of RUQ abdominal pain, tolerable with his current pain regimen. MRI/MRCP yesterday without evidence of choledocholithiasis; GB distension with mild GB wall thickening/edema without appreciable
cholelithiasis. A few tiny cystic foci or dilated ductal side branches are noted in the pancreas. Scattered hepatic cysts with the largest measuring 1.8 cm in the left hepatic lobe.
Objective
Data Reviewed
Laboratory Data:
Laboratory Results
10/20/24 06:47
10/20/24 06:46
Laboratory Results
Total Bilirubin 4.1 mg/dl (0.2-1.3) H 10/20/24 06:46
AST 277 U/L (17-59) H 10/20/24 06:46
ALT 808 U/L (0-50) H* 10/20/24 06:46
Alkaline Phosphatase 322 U/L (38-126) H 10/20/24 06:46
Lipase 408 U/L (23-300) H 10/18/24 07:41
Vital Signs and I&O:
Vital Signs
Temp Pulse Resp BP Pulse Ox
98.5 F 81 18 118/60 96
10/20/24 08:00 10/20/24 08:00 10/20/24 08:00 10/20/24 08:00 10/20/24 08:00
I&O
10/19/24 10/20/24 10/21/24
06:59 06:59 06:59
Intake Total 480 / 480
Balance 480 / 480
Physical Exam
Physical Exam
GENERAL: In no acute distress, appears comfortable
ABDOMEN: central obesity;+BS; soft, mild TTP in RUQ, no rebound or guarding
--- NOTE | 2024-10-20 10:18 | W.PN.HOSP.TC ---
Today's Communication/Plan
-
Follow surgery recommendations.
Assessment / Plan
Assessment / Plan
IMPRESSION:
Patient is a pleasant 74 years old with history of insulin diabetes mellitus, CKD, hypertension, hyperlipidemia who came to the ER with right upper quadrant pain found to have elevated LFTs and concern of passing gallbladder stone, admitted under
hospitalist service with consult to gastroenterology.
LFTs still elevated, MRCP ordered, surgery consulted.
MRCP showed:
No MRCP evidence for choledocholithiasis.
Gallbladder distention and mild gallbladder wall thickening/edema, but no MRI evidence for cholelithiasis. Findings could be reactive or secondary to acalculus cholecystitis.
Assessment/plan:
Transaminitis with possible passing gallbladder stone.
Patient presented to the ER with right upper quadrant pain found to have severely elevated LFTs
Total Bilirubin 1.4 , AST 854 , ALT 497, Alkaline Phosphatase 184
Normal LFTs on March 2023.
CT abdomen/pelvis done shows distended gallbladder but otherwise no acute pathology
Ultrasound abdomen done which shows Gallbladder appears distended. No evidence for cholelithiasis. No convincing evidence for gallbladder wall thickening or pericholecystic edema. Negative sonographic Azar's sign. No evidence of biliary ductal
dilation.
Keep patient NPO.
GI consult.
IV fluid.
Pain and nausea control.
Started on Zosyn in the ER we will continue.
Consider MRCP if symptoms persist.
Hold statin
4/4
Worsening LFTs
Total Bilirubin
(0.2-1.3�mg/dl) 1.4�H
4.0�H�?��
AST
(17-59�U/L) 854�H*��
840�H*��
ALT
(0-50�U/L) 497�H
1267�H*��
Alkaline Phosphatase
(38-126�U/L) 184�H
291�H
4/5
MRCP showed:
No MRCP evidence for choledocholithiasis.
Gallbladder distention and mild gallbladder wall thickening/edema, but no MRI evidence for cholelithiasis. Findings could be reactive or secondary to acalculus cholecystitis.
Improved AST and ALT but still elevated.
Follow-up with surgery commendations.
randi Bilirubin
(0.2-1.3�mg/dl) 1.4�H
4.0�H�?��
4.1�H
AST
(17-59�U/L) 854�H*��
840�H*��
277�H
ALT
(0-50�U/L) 497�H
1267�H*��
808�H*��
Alkaline Phosphatase
(38-126�U/L) 184�H
291�H
322�H
Acute gallstone pancreatitis
Lipase 408
Keep NPO.
IV fluids
45
Started on IV
Acute renal failure on CKD stage IIIb
Creatinine 1.8.
Baseline creatinine 1.6.
Avoid nephrotoxins.
IV fluid hydration
Adjusted and renally dose medications
4/4
Creatinine 1.8
4/5
Acute renal failure ruled out, seems more chronic kidney disease than acute renal failure will discontinue IV
History of diabetes mellitus
Continue home medication (lower Lantus to 20 units at night)
Insulin sliding scale
Diabetic diet
Hemoglobin A1c 10.2 on 2020, Repeat 8.0
History of hypertension
Hold lisinopril for now
History of hyperlipidemia
Hold statin for now
History of gout
reduce allopurinol dose to 100 mg
History of GERD
Continue PPI
CODE STATUS: Full code
DVT prophylaxis: Heparin
Diet: Clear liquid diet
Total time spent on today's encounter was 65 minutes which included time spent in counseling the patient/family regarding diagnosis and treatment plan as listed above, goals of care, and symptom management. Case was discussed with nursing staff,
specialists, and care coordinators/case management. All labs and imaging personally reviewed by me. Remainder the time spent in detailed review of previous records, lab data, imaging, and other medical provider documentation.
Anticipated Discharge: 24 - 48 hours
Subjective/Interval History
-
Date of Service: October 20, 2024
Patient seen and examined at bedside, denies any chest pain or shortness of breath, started on clear liquid diet yesterday, mild abdominal discomfort, no nausea, no vomiting, no diarrhea or constipation.
Objective Data
-
Labs:
Laboratory Results
10/20/24 10/20/24
06:46 06:47
WBC 5.6
Hgb 11.3 L
Hct 33.7 L
Plt Count 214
Sodium 139
Potassium 4.7
Chloride 110 H
Carbon Dioxide 24
BUN 20
Creatinine 1.8 H
Glucose 212 H
Calcium 8.8
Total Bilirubin 4.1 H
AST 277 H
ALT 808 H*
Alkaline Phosphatase 322 H
Vital Signs:
Vital Signs
Temp Pulse Resp BP Pulse Ox
98.5 F 81 18 118/60 96
10/20/24 08:00 10/20/24 08:00 10/20/24 08:00 10/20/24 08:00 10/20/24 08:00
I&O
10/19/24 10/20/24 10/21/24
06:59 06:59 06:59
Intake Total 480 / 480
Balance 480 / 480
Physical Exam
-
General: Well Developed, Well Nourished, No Apparent Distress and Comfortable
HEENT: Normocephalic, Atraumatic, Moist Mucous Membranes, No Ptosis, PERRLA and Nose Appears Normal
Respiratory: Rales and Non Labored Respirations
Cardiac: Regular Rhythm and S1/S2
Breast: Deferred by me
GI: Soft, Nondistended, Normal Bowel Sounds and Tender (Slight right upper quadrant tenderness )
Genito-urinary: No Costovertebral Tender
Musculoskeletal: No Clubbing, No Cyanosis and No Edema
Skin: Warm
Neuro: Awake, Alert, Oriented, AO x 3 and No Motor Deficits
Psych: Calm
Data Reviewed
-
Diagnostic Radiology: Image personally visualized and interpreted and Report Reviewed by me
CT Scan: Image personally visualized and interpreted and Report Reviewed by me
Ultrasound: Image personally visualized and interpreted and Report Reviewed by me
MRI: Image personally visualized and interpreted and Report Reviewed by me
Medical Tests (Nuc Med, Echo etc): Image personally visualized and interpreted and Report Reviewed by me
Labs: Labs Reviewed by me
Old Records: Reviewed
[2024-10-20 11:30] VITALS: BP 145/65
[2024-10-20 12:00] LABS: Glucose - Point of Care 175 mg/dl (70-99)
--- NOTE | 2024-10-20 14:31 | W.PN.GS2 ---
Addendum entered and electronically signed by Jl Rose MD 10/20/24 15:44:
I saw and examined the patient.
The MATERIALS MANAGEMENT CLERK's note was reviewed and I agree with the note.
Comment:
Seen in am with MATERIALS MANAGEMENT CLERK.
Still with RUQ pain and tenderness.
AFVSS.
LFTs still elevated.
?GB issue. CCK HIDA ordered.
Original Note:
Today's Communication / Plan
-
HIDA
Assessment / Plan
-
74 yo male with RUQ pain and elevated LFT's. All imaging from this admission and prior studies without gallstones (US x2, CT, MRCP).
MRI on 10/19 with possible mild gallbladder wall thickening and some percutaneous cholecystic fluid. ?acalculous cholecystitis vs biliary dyskinesia vs possible passed stone not capture on imaging
Has been on Mounjaro for the past 3 months, pain x2 months. ? contributing to these symptoms
LFT's remain elevated, RUQ discomfort persists
No N/V. Tolerating clears
--Check HIDA with CCK to further evaluate gallbladder
--Trend labs
--Tolerating clears. OK for low fat diet if HIDA unable to be done today
Continue with ABX at this time, may benefit from cholecystectomy if no improvement and HIDA abnormal but will hold off at this time. No surgery planned this weekend, will follow on ABX
Subjective Data
-
Date of Service: October 20, 2024
Patient seen and examined at bedside with Dr. Rose. Denies n/v. Pain to the RUQ.
Objective Data
-
Intake and Output
10/19/24 10/20/24 10/21/24
06:59 06:59 06:59
Intake Total 480 / 480
Balance 480 / 480
Intake:
Oral fluids 480 / 480
Other:
Number of approximated SMALL 1
amounts of urine
Number of approximated MODERATE 2 3
amounts of urine
Number of approximated LARGE 1
amounts of urine
Vital Signs
Temp Pulse Resp BP Pulse Ox
97.9 F 78 16 145/65 96
10/20/24 11:30 10/20/24 11:30 10/20/24 11:30 10/20/24 11:30 10/20/24 11:30
Lab Results
10/20/24 06:47
10/20/24 06:46
Calcium 8.8 mg/dl (8.4-10.2) 10/20/24 06:46
Total Bilirubin 4.1 mg/dl (0.2-1.3) H 10/20/24 06:46
AST 277 U/L (17-59) H 10/20/24 06:46
ALT 808 U/L (0-50) H* 10/20/24 06:46
Alkaline Phosphatase 322 U/L (38-126) H 10/20/24 06:46
Total Protein 5.2 g/dl (6.3-8.2) L 10/20/24 06:46
Albumin 2.8 g/dl (3.5-5.0) L 10/20/24 06:46
Physical Exam
-
NAD
ABD soft, tender to RUQ, nd
Mild jaundice
[2024-10-20 16:00] VITALS: BP 122/54
[2024-10-20 17:41] LABS: Glucose - Point of Care 218 mg/dl (70-99)
[2024-10-20 20:00] VITALS: BP 117/59
[2024-10-20] MEDS: MORPHINE SULFATE 2 MG IV (20:33)
[2024-10-20 21:36] LABS: Glucose - Point of Care 272 mg/dl (70-99)
[2024-10-20] MEDS: LANTUS 0.2 UNITS SC (21:47)
[2024-10-20] MEDS: PEPCID 20 MG PO (21:47)
[2024-10-20 23:25] VITALS: BP 102/66
[2024-10-21] MEDS: ZOSYN 50 IV ×4 (01:03→19:47)
[2024-10-21 03:15] VITALS: BP 121/60
[2024-10-21 04:50] LABS: Hematocrit 32.6 % (39.0-52.0); Hemoglobin 11.3 g/dL (13.0-18.0); Mean Corp Hgb Conc. 34.7 g/dL (33.0-37.0); Mean Corpuscular Hgb 30.7 pg (27.0-31.0); Mean Corpuscular Volume 88.6 fL (80.0-94.0); Mean Platelet Volume 11.1 fL (7.4-10.4); Platelet Count 223 10^3/uL (130-400); Red Blood Cell Count 3.68 10^6/uL (4.70-6.10); White Blood Cell Count 6.1 10^3/uL (4.8-10.8)
[2024-10-21 05:25] LABS: ALT (SGPT) 583 U/L (0-50); AST (SGOT) 121 U/L (17-59); Albumin 3.1 g/dl (3.5-5.0); Alkaline Phosphatase 315 U/L (38-126); Blood Urea Nitrogen 15 mg/dl (9-20); Calcium 8.8 mg/dl (8.4-10.2); Carbon Dioxide 23 mmol/L (22-30); Chloride 109 mmol/L (98-107); Estimated Creatinine Clearance 52 ml/min; Glucose 161 mg/dl (70-99); Potassium 4.3 mmol/L (3.5-5.1); Sodium 139 mmol/L (135-145); Total Bilirubin 1.9 mg/dl (0.2-1.3); Total Protein 5.6 g/dl (6.3-8.2); eGFR 45.21
[2024-10-21 05:35] LABS: Direct Bilirubin 0.7 mg/dl (0.0-0.4)
[2024-10-21 07:00] VITALS: BP 127/58
[2024-10-21 08:21] LABS: Glucose - Point of Care 176 mg/dl (70-99)
--- NOTE | 2024-10-21 09:02 | CM ---
CM following re: d/c planning.
Continuing abx.
Pt from home, resides with son.
Pt independent at baseline.
CM will continue to follow medical course.
No d/c needs anticipated at this time.
[2024-10-21] MEDS: HEPARIN 5000 UNITS SC ×3 (09:35→23:40)
[2024-10-21] MEDS: NOVOLOG FLEXPEN-LOW RESISTANCE 1 UNITS SC (09:38)
--- NOTE | 2024-10-21 11:01 | W.PN.HOSP.TC ---
Today's Communication/Plan
-
HIDA scan today
Assessment / Plan
Assessment / Plan
IMPRESSION:
Patient is a pleasant 74 years old with history of insulin diabetes mellitus, CKD, hypertension, hyperlipidemia who came to the ER with right upper quadrant pain found to have elevated LFTs and concern of passing gallbladder stone, admitted under
hospitalist service with consult to gastroenterology.
LFTs still elevated, MRCP ordered, surgery consulted.
MRCP showed:
No MRCP evidence for choledocholithiasis.
Gallbladder distention and mild gallbladder wall thickening/edema, but no MRI evidence for cholelithiasis. Findings could be reactive or secondary to acalculus cholecystitis.
10/21
Pending HIDA scan
Assessment/plan:
Transaminitis with possible passing gallbladder stone.
Patient presented to the ER with right upper quadrant pain found to have severely elevated LFTs
Total Bilirubin 1.4 , AST 854 , ALT 497, Alkaline Phosphatase 184
Normal LFTs on March [address]23.
CT abdomen/pelvis done shows distended gallbladder but otherwise no acute pathology
Ultrasound abdomen done which shows Gallbladder appears distended. No evidence for cholelithiasis. No convincing evidence for gallbladder wall thickening or pericholecystic edema. Negative sonographic Azar's sign. No evidence of biliary ductal
dilation.
Keep patient NPO.
GI consult.
IV fluid.
Pain and nausea control.
Started on Zosyn in the ER we will continue.
Consider MRCP if symptoms persist.
Hold statin
10/19
Worsening LFTs
10/20
MRCP showed:
No MRCP evidence for choledocholithiasis.
Gallbladder distention and mild gallbladder wall thickening/edema, but no MRI evidence for cholelithiasis. Findings could be reactive or secondary to acalculus cholecystitis.
Improved AST and ALT but still elevated.
Follow-up with surgery commendations.
10/21
50s improved.
Pending HIDA scan
otal Bilirubin
(0.2-1.3�mg/dl) 1.4�H
4.0�H�?��
4.1�H
1.9�H���
Direct Bilirubin
(0.0-0.4�mg/dl) 0.7�H
AST
(17-59�U/L) 854�H*��
840�H*��
277�H
121�H
ALT
(0-50�U/L) 497�H
1267�H*��
808�H*��
583�H*��
Alkaline Phosphatase
(38-126�U/L) 184�H
291�H
322�H
315�H
Acute gallstone pancreatitis
Lipase 408
Keep NPO.
IV fluids
4/5
Started on IVF
4/6
N.p.o. for HIDA scan
Acute renal failure on CKD stage IIIb
Creatinine 1.8.
Baseline creatinine 1.6.
Avoid nephrotoxins.
IV fluid hydration
Adjusted and renally dose medications
4/4
Creatinine 1.8
4/5
Acute renal failure ruled out, seems more chronic kidney disease than acute renal failure will discontinue IV
4/
Cr 1.6
History of diabetes mellitus
Continue home medication (lower Lantus to 20 units at night)
Insulin sliding scale
Diabetic diet
Hemoglobin A1c 10.2 on 2020, Repeat 8.0
History of hypertension
Hold lisinopril for now
History of hyperlipidemia
Hold statin for now
History of gout
reduce allopurinol dose to 100 mg
History of GERD
Continue PPI
CODE STATUS: Full code
DVT prophylaxis: Heparin
Diet: NPO
Total time spent on today's encounter was 65 minutes which included time spent in counseling the patient/family regarding diagnosis and treatment plan as listed above, goals of care, and symptom management. Case was discussed with nursing staff,
specialists, and care coordinators/case management. All labs and imaging personally reviewed by me. Remainder the time spent in detailed review of previous records, lab data, imaging, and other medical provider documentation.
Anticipated Discharge: > 48 hours
Subjective/Interval History
-
Date of Service: October 21, 2024
Patient seen and examined at bedside, currently experience right upper quadrant pain 4-5/10 in severity.
Seen by surgery team and plan for HIDA scan which is still pending.
Objective Data
-
Labs:
Laboratory Results
10/21/24
04:10
WBC 6.1
Hgb 11.3 L
Hct 32.6 L
Plt Count 223
Sodium 139
Potassium 4.3
Chloride 109 H
Carbon Dioxide 23
BUN 15
Creatinine 1.6 H
Glucose 161 H
Calcium 8.8
Total Bilirubin 1.9 H D
AST 121 H
ALT 583 H*
Alkaline Phosphatase 315 H
Vital Signs:
Vital Signs
Temp Pulse Resp BP Pulse Ox
97.7 F 74 20 127/58 96
10/21/24 07:00 10/21/24 07:00 10/21/24 07:00 10/21/24 07:00 10/21/24 07:00
I&O
10/20/24 10/21/24 10/22/24
06:59 06:59 06:59
Intake Total 480 / 480 1200 / 1200
Balance 480 / 480 1200 / 1200
Physical Exam
-
General: Well Developed, Well Nourished, No Apparent Distress and Comfortable
HEENT: Normocephalic, Atraumatic, Moist Mucous Membranes, No Ptosis, PERRLA and Nose Appears Normal
Respiratory: Rales and Non Labored Respirations
Cardiac: Regular Rhythm and S1/S2
Breast: Deferred by me
GI: Soft, Nondistended, Normal Bowel Sounds and Tender (Slight right upper quadrant tenderness )
Genito-urinary: No Costovertebral Tender
Musculoskeletal: No Clubbing, No Cyanosis and No Edema
Skin: Warm
Neuro: Awake, Alert, Oriented, AO x 3 and No Motor Deficits
Psych: Calm
Data Reviewed
-
Diagnostic Radiology: Image personally visualized and interpreted and Report Reviewed by me
CT Scan: Image personally visualized and interpreted and Report Reviewed by me
Ultrasound: Image personally visualized and interpreted and Report Reviewed by me
MRI: Image personally visualized and interpreted and Report Reviewed by me
Medical Tests (Nuc Med, Echo etc): Image personally visualized and interpreted and Report Reviewed by me
Labs: Labs Reviewed by me
Old Records: Reviewed
[2024-10-21] MEDS: PROTONIX 20 MG PO (12:35)
[2024-10-21] MEDS: ZYLOPRIM 100 MG PO (12:35)
[2024-10-21 12:39] LABS: Glucose - Point of Care 149 mg/dl (70-99)
[2024-10-21] MEDS: NOVOLOG FLEXPEN-LOW RESISTANCE SC ×2 (12:39→17:10)
[2024-10-21 15:00] VITALS: BP 127/54
--- NOTE | 2024-10-21 15:19 | W.PN.GS2 ---
Addendum entered and electronically signed by Jl Rose MD 10/21/24 16:13:
I saw and examined the patient.
The JUVENILE COUNSELOR's note was reviewed and I agree with the note.
Comment:
Seen earlier with JUVENILE COUNSELOR.
Still RUQ pain.
AFVSS. Elevated LFTs.
Abdomen with RUQ tenderness.
HIDA results noted. Negative for Cystic obstruction.
?GB issue.
On OR schedule tomorrow for lap prashanth just in case; gen surg to assess tomorrow am.
Original Note:
Today's Communication / Plan
-
Diet as tolerated
Assessment / Plan
-
74 yo male with RUQ pain and elevated LFT's. All imaging from this admission and prior studies without gallstones (US x2, CT, MRCP).
MRI on 10/19 with possible mild gallbladder wall thickening and some percutaneous cholecystic fluid. ?acalculous cholecystitis vs biliary dyskinesia vs possible passed stone not captured on imaging
Has been on Mounjaro for the past 3 months, pain x2 months. ? contributing to these symptoms
LFT's remain elevated but now trending down
RUQ discomfort persists with burping/belching
HIDA scan preformed today and is normal
--May benefit from reeval by GI team
--Trend labs
--Resume clears today
Continue with ABX at this time, may benefit from cholecystectomy if no improvement. Will make NPO after MN to keep this option available.
Subjective Data
-
Date of Service: October 21, 2024
Patient seen and examined at bedside with Dr. Rose. Burping/belching and discomfort with PO intake. RUQ pain persists.
Objective Data
-
Intake and Output
10/20/24 10/21/24 10/22/24
06:59 06:59 06:59
Intake Total 480 / 480 1200 / 1200 100 / 100
Balance 480 / 480 1200 / 1200 100 / 100
Intake:
Oral fluids 480 / 480 1200 / 1200
IV piggybacks 100 / 100
Other:
Number of approximated SMALL 1
amounts of urine
Number of approximated MODERATE 3 3
amounts of urine
Number of approximated LARGE 1
amounts of urine
Vital Signs
Temp Pulse Resp BP Pulse Ox
97.7 F 74 20 127/58 96
10/21/24 07:00 10/21/24 07:00 10/21/24 07:00 10/21/24 07:00 10/21/24 07:00
Lab Results
10/21/24 04:10
10/21/24 04:10
Calcium 8.8 mg/dl (8.4-10.2) 10/21/24 04:10
Total Bilirubin 1.9 mg/dl (0.2-1.3) H D 10/21/24 04:10
Direct Bilirubin 0.7 mg/dl (0.0-0.4) H 10/21/24 04:10
AST 121 U/L (17-59) H 10/21/24 04:10
ALT 583 U/L (0-50) H* 10/21/24 04:10
Alkaline Phosphatase 315 U/L (38-126) H 10/21/24 04:10
Total Protein 5.6 g/dl (6.3-8.2) L 10/21/24 04:10
Albumin 3.1 g/dl (3.5-5.0) L 10/21/24 04:10
Physical Exam
-
NAD
ABD soft, tender to RUQ, nd
[2024-10-21 17:02] LABS: Glucose - Point of Care 130 mg/dl (70-99)
[2024-10-21 19:00] VITALS: BP 154/74
[2024-10-21] MEDS: MORPHINE SULFATE 2 MG IV (19:56)
[2024-10-21 21:25] LABS: Glucose - Point of Care 166 mg/dl (70-99)
[2024-10-21] MEDS: PEPCID 20 MG PO (21:50)
[2024-10-21] MEDS: LANTUS 0.2 UNITS SC (21:50)
[2024-10-21 23:00] VITALS: BP 150/74
[2024-10-22] VITALS (17 sets, daily range): BP systolic 142–183; BP diastolic 72–96; BMI 42.4
[2024-10-22] MEDS: ZOSYN 50 IV ×3 (01:07→20:17)
[2024-10-22 05:37] LABS: Glucose - Point of Care 126 mg/dl (70-99)
[2024-10-22 06:54] LABS: Hematocrit 36.1 % (39.0-52.0); Hemoglobin 12.4 g/dL (13.0-18.0); Mean Corp Hgb Conc. 34.3 g/dL (33.0-37.0); Mean Corpuscular Hgb 30.8 pg (27.0-31.0); Mean Corpuscular Volume 89.6 fL (80.0-94.0); Mean Platelet Volume 10.5 fL (7.4-10.4); Platelet Count 240 10^3/uL (130-400); Red Blood Cell Count 4.03 10^6/uL (4.70-6.10); Red Cell Dist. Width 15.1 % (11.5-14.5); White Blood Cell Count 6.1 10^3/uL (4.8-10.8)
[2024-10-22 07:22] LABS: ALT (SGPT) 392 U/L (0-50); AST (SGOT) 57 U/L (17-59); Albumin 3.5 g/dl (3.5-5.0); Alkaline Phosphatase 309 U/L (38-126); Blood Urea Nitrogen 12 mg/dl (9-20); Calcium 9.3 mg/dl (8.4-10.2); Carbon Dioxide 22 mmol/L (22-30); Chloride 109 mmol/L (98-107); Estimated Creatinine Clearance 55 ml/min; Glucose 169 mg/dl (70-99); Potassium 4.3 mmol/L (3.5-5.1); Sodium 140 mmol/L (135-145); Total Bilirubin 1.3 mg/dl (0.2-1.3); eGFR 48.85
[2024-10-22] MEDS: NOVOLOG FLEXPEN-LOW RESISTANCE SC ×2 (07:39→17:32)
[2024-10-22] MEDS: PROTONIX 20 MG PO (07:40)
[2024-10-22] MEDS: ZYLOPRIM 100 MG PO (07:40)
[2024-10-22] MEDS: HEPARIN 5000 UNITS SC ×2 (07:40→23:02)
--- NOTE | 2024-10-22 10:07 | W.PN.GS2 ---
Today's Communication / Plan
-
OR today
N.p.o., IV fluids, IV antibiotics ordered on-call.
Assessment / Plan
-
74 yo male on a GLP-1 agonist with postprandial RUQ pain and elevated LFT's. All imaging from this admission and prior studies without gallstones (US x2, CT, MRCP) but MRI does note some mild gallbladder wall thickening. HIDA scan negative for
acute obstruction. LFTs trending down. While this could represent a drug induced injury of the liver, it could also be that he had a small stone/choledocholithiasis which passed.
Had a thorough discussion with the patient this morning regarding his symptoms and somewhat discordant imaging findings. He understands that cholecystectomy may not alleviate all of his symptoms.
Risks/Benefits/Alternatives, expected postoperative course and possible complications (bleeding, infection, injury to surrounding structures, acute/chronic pain) discussed at length. Patient wishes to proceed with surgery. All questions answered.
Consent obtained.
I spent 45 minutes in total for the care of this patient today including direct patient care and counseling, reviewing labs, imaging, coordination of care, as well as documentation.
Time Spent
Total Time Spent with Patient (in minutes): 20
Subjective Data
-
Date of Service: October 22, 2024
Interval Events:
No acute events overnight. Slept well. Pain Controlled but still present. Denies Nausea/Vomiting.
Objective Data
-
Intake and Output
10/21/24 10/22/24 10/23/24
06:59 06:59 06:59
Intake Total 1200 / 1200 1240 / 1240
Balance 1200 / 1200 1240 / 1240
Intake:
Oral fluids 1200 / 1200 1140 / 1140
IV piggybacks 100 / 100
Other:
Number of approximated SMALL 1
amounts of urine
Number of approximated MODERATE 3 3
amounts of urine
Number of approximated LARGE 1 3
amounts of urine
Vital Signs
Temp Pulse Resp BP Pulse Ox
97.6 F 73 18 142/96 99
10/22/24 07:26 10/22/24 07:26 10/22/24 07:26 10/22/24 07:26 10/22/24 07:26
Lab Results
10/22/24 06:43
10/22/24 06:43
Calcium 9.3 mg/dl (8.4-10.2) 10/22/24 06:43
Total Bilirubin 1.3 mg/dl (0.2-1.3) 10/22/24 06:43
Direct Bilirubin 0.7 mg/dl (0.0-0.4) H 10/21/24 04:10
AST 57 U/L (17-59) 10/22/24 06:43
ALT 392 U/L (0-50) H 10/22/24 06:43
Alkaline Phosphatase 309 U/L (38-126) H 10/22/24 06:43
Total Protein 6.0 g/dl (6.3-8.2) L 10/22/24 06:43
Albumin 3.5 g/dl (3.5-5.0) 10/22/24 06:43
Physical Exam
-
GENERAL/NEURO: Awake, Alert, no distress
CHEST: Unlabored breathing on RA
ABDOMEN: Soft, obese, tender to palpation in the right upper quadrant
Patient has a mcgill catheter: No
Patient has a central line: No
--- NOTE | 2024-10-22 10:20 | CM ---
Patient seen at beside
patient NPO, for OR
PLAN: home, anticipate no needs, CM to continue to follow hospital progress
--- NOTE | 2024-10-22 10:22 | W.SUR.PREOP ---
Pre-Operative Surgical Note
-
I have examined this patient prior to the performance of the scheduled procedure.
The patient's condition is unchanged from the time of the current History and
Physical and the patient is able to undergo the scheduled procedure.
--- NOTE | 2024-10-22 12:02 | W.PN.HOSP.TC ---
Today's Communication/Plan
-
For the OR for lap prashanth with general surgery
Assessment / Plan
Assessment / Plan
NAD
Scleral Anicteric
MMM
No JVD
CTABL
RRR, S1/S2
Obese, soft, NT, ND, BS+
Warm, Dry
Calm
IMPRESSION:
Patient is a pleasant 74 years old with history of insulin diabetes mellitus, CKD, hypertension, hyperlipidemia who came to the ER with right upper quadrant pain found to have elevated LFTs and concern of passing gallbladder stone, admitted under
hospitalist service with consult to gastroenterology.
LFTs still elevated, MRCP ordered, surgery consulted.
MRCP showed:
No MRCP evidence for choledocholithiasis.
Gallbladder distention and mild gallbladder wall thickening/edema, but no MRI evidence for cholelithiasis. Findings could be reactive or secondary to acalculus cholecystitis.
4/6
Pending HIDA scan
Assessment/plan:
Transaminitis. Potentially related to distended gallbladder however without evidence of choledocholithiasis.
MRCP and HIDA scan both completed
Per surgery some abnormalities on MRCP noted
Therefore will plan for lap prashanth later today to see if there is symptomatic resolution
Hold statin
Daily LFTs
Acute gallstone pancreatitis
Resolved
IV fluids
Would be able to start advance diet today however plan for L4
Acute renal failure on CKD stage IIIb
Resolved at baseline, though likely chronic kidney disease
History of diabetes mellitus
Continue home medication (lower Lantus to 20 units at night)
Insulin sliding scale
Diabetic diet
Hemoglobin A1c 10.2 on 2020, Repeat 8.0
History of hypertension
Hold lisinopril for now
History of hyperlipidemia
Hold statin for now
History of gout
reduce allopurinol dose to 100 mg
History of GERD
Continue PPI
CODE STATUS: Full code
DVT prophylaxis: Heparin
Diet: NPO, for the OR
Anticipated Discharge: 24 - 48 hours
Subjective/Interval History
-
Date of Service: October 22, 2024
Seen and examined. No new states he is going to the OR at 2 PM today. Currently n.p.o. Continues to have abdominal pain intermittently.
Objective Data
-
Labs:
Laboratory Results
10/22/24
06:43
WBC 6.1
Hgb 12.4 L
Hct 36.1 L
Plt Count 240
Sodium 140
Potassium 4.3
Chloride 109 H
Carbon Dioxide 22
BUN 12
Creatinine 1.5 H
Glucose 169 H
Calcium 9.3
Total Bilirubin 1.3
AST 57
ALT 392 H
Alkaline Phosphatase 309 H
Vital Signs:
Vital Signs
Temp Pulse Resp BP Pulse Ox
97.9 F 75 18 152/84 98
10/22/24 10:46 10/22/24 10:46 10/22/24 10:46 10/22/24 10:46 10/22/24 10:46
I&O
10/21/24 10/22/24 10/23/24
06:59 06:59 06:59
Intake Total 1200 / 1200 1240 / 1240
Balance 1200 / 1200 1240 / 1240
[2024-10-22 12:09] LABS: Glucose - Point of Care 157 mg/dl (70-99)
[2024-10-22] MEDS: NOVOLOG FLEXPEN-LOW RESISTANCE 1 UNITS SC (12:41)
--- NOTE | 2024-10-22 12:55 | PTCARENOTE ---
Patient departed from unit with transport staff around 1250 this shift. Preop checklist completed. No jewelry to be removed, undergarments removed. IV intact. Zosyn tubed down to OR for administration in PACU. Vital signs stable. Patient in
agreement with plan of care. Report called to OR. Will await pt's return from the OR.
--- NOTE | 2024-10-22 15:35 | W.IMMPOSTOP ---
Surgical Immed Post Op Note
-
Primary Surgeon: Kem Hobson MD
Assisting Surgeon: None
Pre-op Diagnosis: Chronic cholecystitis
Post-op Diagnosis: Same
Procedure Performed: Laparoscopic cholecystectomy with cholangiogram
Anesthesia Type: General
Specimen / Cultures: Gallbladder and contents
Estimated Blood Loss: 23 cc
Complications: None
Operative Findings: Chronically inflamed and distended gallbladder which in addition to his intra-abdominal obesity led to a fairly challenging dissection. We did a top-down total cholecystectomy. Both a posterior and anterior cystic artery were
identified and divided using titanium clips. A cholangiogram was performed after making a ductotomy which demonstrated normal biliary anatomy and no distal filling defects with free flow of contrast into the duodenum. The stump was ligated with a
clip followed by 0 PDS Endoloop. There was spillage of bile but no stones were noted. The fossa was sprayed with Surgiflo to ensure hemostasis.
POST OP PLAN:
Imaging: None
Labs: Routine AM
Diet: Advance to Regular as tolerated
Analgesia: Tylenol 650mg q6 Perez, Modesta 5mg q6 PRN, Dilaudid 0.5mg q2h PRN
Neuro/vascular checks: q4h
AC/AP: Hold Therapeutic AC, Ok for DVT PPx
Activity: Ad Christine
Wound/Incisions/Drains: Routine
Abx: None
Dispo: RNF, anticipate discharge home tomorrow pending clinical course.
--- NOTE | 2024-10-22 15:40 | OR.RPT ---
Operative Report
Operative Report
Patient Name: Donnie Lennon
: 1950
Date of Operation: 10/22/2024
Preoperative Diagnosis: Chronic cholecystitis
Postoperative Diagnosis: Same
Procedure(s):
Laparoscopic Cholecystectomy with Cholangiogram
Surgeon(s):
Dr. Hobson
Optical Glass Inspector(s):
GAYE Mcleod
Anesthesia: General
Estimated Blood Loss: 23 cc
Urine Output: None
Drains/Lines/Implants: None
Specimens:
1. Gallbladder and contents
HPI/Surgical Indications:
This is a 74-year-old male who presents with 2 days of right upper quadrant abdominal pain. Though his history and exam were consistent with biliary colic versus acute cholecystitis, his imaging was fairly unremarkable other than some edema around
the gallbladder concerning for chronic cholecystitis. Risks/Benefits/Alternatives were discussed at length, and the patient agreed to proceed with surgery.
Operative Findings: Chronically inflamed and distended gallbladder which in addition to his intra-abdominal obesity led to a fairly challenging dissection. We did a top-down total cholecystectomy. Both a posterior and anterior cystic artery were
identified and divided using titanium clips. A cholangiogram was performed after making a ductotomy which demonstrated normal biliary anatomy and no distal filling defects with free flow of contrast into the duodenum. The stump was ligated with a
clip followed by 0 PDS Endoloop. There was spillage of bile but no stones were noted. The fossa was sprayed with Surgiflo to ensure hemostasis.
Procedure Description:
The patient was brought to the Operating Room and placed in the supine position with one arm tucked. Following uneventful induction of general endotracheal anesthesia, an orogastric tube was placed. The abdomen was prepped and draped in the usual
sterile fashion. A timeout was performed confirming the procedure, consent, and that IV antibiotics were infused and sequential compression devices were confirmed to be on. The abdomen was entered using a left subcostal Veress technique which
required a single pass followed by a 5 mm right upper quadrant Optiview trocar. Pneumoperitoneum to 15 mmHg pressure was obtained without difficulty and we confirmed that no injury had occurred during our entry. The patient was positioned in
reverse Trendelenberg and rotated with the right side up slightly. Two 5 mm trocars were then placed along the right subcostal margin, followed by a 12 mm port in the epigastrium. The gallbladder was partially emptied using a decompressing needle
through the fundus of the gallbladder with evacuation of hydrops, however the gallbladder was still difficult to manipulate so the rent was enlarged and the gallbladder contents were suctioned out. A locking grasping forceps was placed on the
fundus of the gallbladder where it was then retracted cephalad and to the right. Using appropriate grasping instruments, the peritoneum overlying the triangle of Calot was incised and extended superiorly on both the anterior and posterior
gallbladder abreu. The infundibulum however could not be fully dissected out and exposure here was very difficult so we elected to do a top-down cholecystectomy after lysing the adhesions from the periduodenal fat to the base of the gallbladder. A
4 x 4 Ray-Shauna was placed into the base of the dissection to help protect the duodenum. Following the posterior wall of the gallbladder we carefully divided all the small blood vessels from the gallbladder wall to the fossa. Dissection was taken
down all the way towards the neck of the gallbladder. A posterior cystic artery was identified clipped and divided. Similarly a anterior cystic artery was controlled in the same fashion. With the cystic duct isolated 0 PDS Endoloop was used to
get proximal control and a ductotomy was made. A cholangiocatheter on an Simmons clamp was inserted into the cystic duct. A C-arm was draped and brought into the field. An intra-operative cholangiogram was performed and was noted to have:
No filling defects in the biliary tree
No significant biliary dilation
Brisk flow of contrast into the duodenum
Normal biliary anatomy
The catheter was then removed and the cystic duct was controlled with a clip followed by a 0 PDS Endoloop. The 4 x 4 Ray-Shauna was removed. There was some spillage of bile, but no spillage of stones. The gallbladder bed was inspected and excellent
hemostasis was obtained. There was no active bleeding, due to the raw inflamed surface area Surgiflo was applied over our surgical field. The gallbladder was extracted through the 12 mm trocar site using an endocatch bag. The abdomen was again
irrigated and excellent hemostasis was assured. All remaining trocars were then removed and the pneumoperitoneum was evacuated. The 12 mm trocar site was closed using 0 PDS suture. All trocar sites were closed at the skin level using 4-0 Monocryl
followed by Dermabond. Overall, the patient tolerated the procedure well and was taken to the Recovery Room postoperatively in stable condition.
I was the attending physician and performed the procedure with assistance from the LANDFILL GAS TECHNICIAN above. I was present for all portions of the case, excluding skin closure.
Kem Hobson MD
[2024-10-22 15:54] LABS: Glucose - Point of Care 192 mg/dl (70-99)
[2024-10-22] MEDS: ZOSYN IV (16:08)
[2024-10-22] MEDS: DILAUDID 0.5 MG IV (16:20)
[2024-10-22] MEDS: NOVOLOG vial 1 UNITS SC (16:35)
[2024-10-22] MEDS: TRANDATE 5 MG IV ×2 (16:38→16:54)
[2024-10-22] MEDS: HEPARIN SC (17:29)
--- NOTE | 2024-10-22 17:38 | PTCARENOTE ---
Addendum entered by Areli Donohue RN 10/22/24 18:06:
Report received from Mari prior to pt arriving to the floor.
Original Note:
Pt arrived back to unit from OR at around 1720. Pt reports lower pain level than before in PACU, pain meds effective per pt. Family at bedside. Vitals obtained, all within normal limits. 2L NC O2 maintained from OR. Will be weaned off. Plan of care
ongoing.
[2024-10-22 21:45] LABS: Glucose - Point of Care 228 mg/dl (70-99)
[2024-10-22] MEDS: LANTUS 0.2 UNITS SC (21:48)
[2024-10-22] MEDS: PEPCID 20 MG PO (21:48)
[2024-10-22] MEDS: MORPHINE SULFATE 2 MG IV (21:49)
[2024-10-23] MEDS: ZOSYN 50 IV ×3 (01:10→13:03)
[2024-10-23 03:55] VITALS: BP 135/59
[2024-10-23 07:16] VITALS: BP 141/76
[2024-10-23] MEDS: ULTRAM 50 MG PO (07:28)
[2024-10-23] MEDS: ZYLOPRIM 100 MG PO (07:28)
[2024-10-23] MEDS: PROTONIX 20 MG PO (07:28)
[2024-10-23] MEDS: HEPARIN 5000 UNITS SC (07:29)
[2024-10-23 07:50] LABS: Hematocrit 35.7 % (39.0-52.0); Hemoglobin 12.1 g/dL (13.0-18.0); Mean Corp Hgb Conc. 33.9 g/dL (33.0-37.0); Mean Corpuscular Hgb 30.6 pg (27.0-31.0); Mean Corpuscular Volume 90.2 fL (80.0-94.0); Platelet Count 268 10^3/uL (130-400); Red Blood Cell Count 3.96 10^6/uL (4.70-6.10); Red Cell Dist. Width 15.4 % (11.5-14.5)
[2024-10-23 08:10] LABS: ALT (SGPT) 302 U/L (0-50); AST (SGOT) 56 U/L (17-59); Albumin 3.6 g/dl (3.5-5.0); Alkaline Phosphatase 287 U/L (38-126); Blood Urea Nitrogen 17 mg/dl (9-20); Calcium 8.8 mg/dl (8.4-10.2); Carbon Dioxide 20 mmol/L (22-30); Chloride 106 mmol/L (98-107); Estimated Creatinine Clearance 49 ml/min; Glucose 247 mg/dl (70-99); Potassium 4.7 mmol/L (3.5-5.1); Sodium 136 mmol/L (135-145); Total Protein 6.2 g/dl (6.3-8.2); eGFR 42.04
[2024-10-23 08:24] LABS: Glucose - Point of Care 223 mg/dl (70-99)
[2024-10-23] MEDS: NOVOLOG FLEXPEN-LOW RESISTANCE 2 UNITS SC (08:40)
--- NOTE | 2024-10-23 10:08 | W.PN.GS2 ---
Today's Communication / Plan
-
-- OK for DC from surgical perspective
-- F/u Joce as outpatient
Assessment / Plan
-
Patient is a 74 yo M p/w abdominal pain POD#1 s/p laparoscopic cholecystectomy with IOC. Operative findings in line with chronic cholecystitis
AVSS
Labs reviewed and unremarkable
Recovering well. No postoperative concerns. Okay for discharge from surgical perspective.
-- LFD
-- Pain control: Tylenol and Tramadol
-- Abx: None needed on DC
-- HLIV
-- OK for DC from surgical perspective
-- F/u Joce as outpatient
Subjective Data
-
Date of Service: October 23, 2024
No complaints. Pain well-controlled. Tolerating a diet. Afebrile. Ambulating.
Objective Data
-
Intake and Output
10/22/24 10/23/24 10/24/24
06:59 06:59 06:59
Intake Total 1240 / 1240 1400 / 1400
Balance 1240 / 1240 1400 / 1400
Intake:
Oral fluids 1140 / 1140 1200 / 1200
IV fluids (Total) 200 / 200
Normosol 200 / 200
IV piggybacks 100 / 100
Other:
Number of approximated MODERATE 3 4
amounts of urine
Number of approximated LARGE 3 1
amounts of urine
Vital Signs
Temp Pulse Resp BP Pulse Ox
97.8 F 77 20 141/76 98
10/23/24 07:16 10/23/24 07:16 10/23/24 07:16 10/23/24 07:16 10/23/24 07:16
Lab Results
10/23/24 06:49
10/23/24 06:49
Calcium 8.8 mg/dl (8.4-10.2) 10/23/24 06:49
Total Bilirubin 1.0 mg/dl (0.2-1.3) 10/23/24 06:49
Direct Bilirubin 0.7 mg/dl (0.0-0.4) H 10/21/24 04:10
AST 56 U/L (17-59) 10/23/24 06:49
ALT 302 U/L (0-50) H 10/23/24 06:49
Alkaline Phosphatase 287 U/L (38-126) H 10/23/24 06:49
Total Protein 6.2 g/dl (6.3-8.2) L 10/23/24 06:49
Albumin 3.6 g/dl (3.5-5.0) 10/23/24 06:49
Physical Exam
-
Gen: NAD
Abd: soft, mild tenderness, ND, obese, non-peritoneal, incisions c/d/i - no erythema, ecchymosis or drainage
Patient has a mcgill catheter: No
Patient has a central line: No
[2024-10-23 11:03] VITALS: BP 140/69
--- NOTE | 2024-10-23 11:24 | CM ---
Patient seen at bedside.
patient states to be dc today
IMM explained & signed. In chart
PLAN: home, no needs
daughter to transport at 3pm
[2024-10-23 12:12] LABS: Glucose - Point of Care 299 mg/dl (70-99)
--- NOTE | 2024-10-23 12:13 | W.PN.HOSP.TC ---
Today's Communication/Plan
-
Discharge home
More than 30 minutes spent in discharge including
Final examination of the patient
Summarizing hospital stay
Instructions for continuing care to all relevant caregivers
Preparation of discharge records, prescriptions, and referral forms
Total time spent (in minutes): 33
Assessment / Plan
Assessment / Plan
NAD
Scleral Anicteric
MMM
No JVD
CTABL
RRR, S1/S2
Obese, soft, NT, ND, BS+
Warm, Dry
Calm
IMPRESSION:
Patient is a pleasant 74 years old with history of insulin diabetes mellitus, CKD, hypertension, hyperlipidemia who came to the ER with right upper quadrant pain found to have elevated LFTs and concern of passing gallbladder stone, admitted under
hospitalist service with consult to gastroenterology.
LFTs still elevated, MRCP ordered, surgery consulted.
MRCP showed:
No MRCP evidence for choledocholithiasis.
Gallbladder distention and mild gallbladder wall thickening/edema, but no MRI evidence for cholelithiasis. Findings could be reactive or secondary to acalculus cholecystitis.
4/6
Pending HIDA scan
Assessment/plan:
Transaminitis. Potentially related to distended gallbladder however without evidence of choledocholithiasis.
MRCP and HIDA scan both completed
Per surgery some abnormalities on MRCP noted
S/p lap prashanth later today
Acute gallstone pancreatitis
Resolved
IV fluids
Would be able to start advance diet today however plan for L4
Acute renal failure on CKD stage IIIb
Resolved at baseline, though likely chronic kidney disease
History of diabetes mellitus
Continue home medication (lower Lantus to 20 units at night)
Insulin sliding scale
Diabetic diet
Hemoglobin A1c 10.2 on 2020, Repeat 8.0
History of hypertension
Hold lisinopril for now
History of hyperlipidemia
Hold statin for now
History of gout
reduce allopurinol dose to 100 mg
History of GERD
Continue PPI
CODE STATUS: Full code
DVT prophylaxis: Heparin
Diet: NPO, for the OR
Anticipated Discharge: Today
Subjective/Interval History
-
Date of Service: October 23, 2024
Seen and examined. No new complaints. No acute overnight events.
Was speaking to a supervisor plate forming when I first saw him
Sitting in bedside chair in front of the window states pain has resolved apart from some surgical related pain. Otherwise improving and feels more comfortable.
Objective Data
-
Labs:
Laboratory Results
10/23/24
06:49
WBC 9.0
Hgb 12.1 L
Hct 35.7 L
Plt Count 268
Sodium 136
Potassium 4.7
Chloride 106
Carbon Dioxide 20 L
BUN 17
Creatinine 1.7 H
Glucose 247 H
Calcium 8.8
Total Bilirubin 1.0
AST 56
ALT 302 H
Alkaline Phosphatase 287 H
Vital Signs:
Vital Signs
Temp Pulse Resp BP Pulse Ox
97.8 F 87 16 140/69 96
10/23/24 11:03 10/23/24 11:03 10/23/24 11:03 10/23/24 11:03 10/23/24 11:03
I&O
10/22/24 10/23/24 10/24/24
06:59 06:59 06:59
Intake Total 1240 / 1240 1400 / 1400
Balance 1240 / 1240 1400 / 1400
[2024-10-23] MEDS: NOVOLOG FLEXPEN-LOW RESISTANCE 3 UNITS SC (12:42)
[2024-10-23 15:18] VITALS: BP 143/61
== END 2024-10-23 15:28 | disposition home or self-care (01) | DRG 417 ==
LOC: 3 WEST ACU 14:05
PROVIDERS: Registered Nurse; Surgery; ADMITTING PHYSICIAN General Practice; ATTENDING PHYSICIAN Hospitalist; CONSULT PHYSICIAN Internal Medicine; CONSULT PHYSICIAN Surgery; EMERGENCY PHYSICIAN Emergency Medicine; FAMILY PHYSICIAN Family Medicine
PROC: 0FT44ZZ Resection of Gallbladder, Percutaneous Endoscopic Approach (ICD-10-PCS; 2024-10-22)
PROC: BF502Z0 Other Imaging of Bile Ducts using Fluorescing Agent, Intraoperative (ICD-10-PCS; 2024-10-22)
DX: K81.1 Chronic cholecystitis (principal); K85.10 Biliary acute pancreatitis without necrosis or infection; N17.9 Acute kidney failure, unspecified; Z68.41 Body mass index [BMI] 40.0-44.9, adult; E66.01 Morbid (severe) obesity due to excess calories; E11.22 Type 2 diabetes mellitus with diabetic chronic kidney disease; I12.9 Hypertensive chronic kidney disease with stage 1 through stage 4 chronic kidney disease, or unspecified chronic kidney disease; N18.32 Chronic kidney disease, stage 3b; K76.0 Fatty (change of) liver, not elsewhere classified; K76.89 Other specified diseases of liver; K82.8 Other specified diseases of gallbladder; R59.0 Localized enlarged lymph nodes
CPT/HCPCS: 88304; 71275; 74174; 74183; 74300; 76000; 76700; 78226; 80053; 82248; 82962; 83036; 83690; 84484; 85025; 85027; 86803; 93005; 96365; 99285; A4300; A9537; Q9967